=== PATIENT | male | born 1985 | race African-American/Black ===

== ENCOUNTER 2024-12-28 09:38 | Emergency (ER) | payer SELFPAY ==
[~2024-12-28] VITALS: Ht 175.3 cm; Wt 179.6 kg
[2024-12-28 10:11] LABS: SARS-CoV-2, RNA, NAAT NEGATIVE SARS CoV-2 (NEGATIVE)
[2024-12-28 10:39] LABS: INFLUENZA TYPE A Negative For Type A (NEGATIVE); INFLUENZA TYPE B Negative For Type B (NEGATIVE)
[2024-12-28] MEDS: Solu-medROL 40MG VIAL IM ONE (10:47)
[2024-12-28] MEDS: ketOROlac 15MG/ML VIAL (15MG/ML) IM ONE (10:47)
[2024-12-28 11:14] VITALS: PULSE 108; RESP 20
[2024-12-28] MEDS: ALBUTEROL 0.083% 2.5 MG/3 ML INH IH ONE (11:14)
--- NOTE | 2024-12-28 11:28 | HMCIMG ---
PORTABLE CHEST RADIOGRAPH INDICATION: COUGH COMPARISON: None FINDINGS: Image is somewhat underexposed, but the radiologic examination is still believed to be of reasonable diagnostic quality. Heart and pulmonary vascularity are enlarged. No abnormal pulmonary parenchymal opacity or consolidation identified. No significant pleural effusion noted. No pneumothorax detected. IMPRESSION: Cardiomegaly and pulmonary vascular congestion.
[2024-12-28] MEDS ORDERED: CODE473S6 PO (11:37)
[2024-12-28] MEDS ORDERED: AZIT250T9 PO (11:37)
[2024-12-28] MEDS ORDERED: ALBUHFA IH (11:37)
[2024-12-28] MEDS ORDERED: PRED20TA3 PO (11:37)
--- NOTE | 2024-12-28 11:40 | ERN ---
General Chief Complaint: Cough Stated Complaint: COUGH, RIB PAIN Time Seen by MD: 09:44 History of Present Illness Initial Comments 39-year-old male, history of CHF hypertension, presents for cough congestion over the last few days. He reports some subjective fevers, productive cough and tightness in his chest. He reports some left flank pain due to a significant coughing. He was tried [id number] cough and cold medications without relief. Of note, he does occasionally get fluid overloaded. He takes Lasix and spi ronolactone. He reports that he was not feel fluid overloaded at this time, he feels like he was viral URI type symptoms. Allergies: Coded Allergies: Penicillins (Unverified Allergy, Unknown, 12/28/24) Past Medical History Past Medical History: CHF, Hypertension Past Surgical History: None ROS Dictation CONSTITUTIONAL: No chills, no fever, no weakness, no diaphoresis, no malaise. HEAD/FACE: No signs of trauma. EENT: No eye pain, no blurred vision, no tearing, no double vision, no ear pain, no ear discharge, no nose pain, no nasal congestion, no throat pain, no throat swelling, no mouth pain. RESPIRATORY: Productive cough and body aches CARDIOVASCULAR: No chest pain, no edema, no palpitations, no syncope. GASTROINTESTINAL/ABDOMINAL: No abdominal pain, no constipation, no diarrhea, no nausea, no vomiting. GENITOURINARY: No abnormal discharge, no dysuria, no frequent urination, no hematuria. No complaints of pain in the genitals. MUSCULOSKELETAL: No back pain, no gout, no joint pain, no joint swelling, no muscle pain, no muscle stiffness, no neck pain. INTEGUMENTARY: No change in color, no change in hair/nails, no dryness, no lesion, no lumps, no rash. NEUROLOGICAL/PSYCH: No anxiety, not depressed, no emotional problem, no headache, no numbness, no pre-existing deficit, no history of seizures, no tremors, no weakness. HEMATOLOGIC/LYMPHATIC: Not anemic, no history of blood clots, no apparent bleeding, no bruising, glands not swollen. All Systems Negative, Except as Noted. Physical Exam Physical Exam Dictation VITAL SIGNS: Reviewed. GENERAL APPEARANCE: Alert, oriented x3, no acute distress, obese. HEAD AND FACE: Non-traumatic. EYES: PERRL, pink conjunctivas, eyelid no trauma, anterior chamber clear. EARS: Pinnas intact and no signs of trauma or erythema. Ear canals clear and no discharge. TMs no erythema. NOSE: No discharge, no bleeding. OROPHARYNX: Mouth normal, teeth no caries, tongue pink. Pharynx clear, no erythema. Tonsils no exudates, no abscesses noted. Mucous membrane moist. NECK: Supple, non-tender, no thyromegaly, no masses, no JVD, no bruits. BREAST: Deferred. CHEST: No tenderness, no crepitus, no paradoxical movement, no retractions. LUNGS: Coughing, minimal expiratory wheezing, no pulmonary edema noted on exam HEART: Regular rate, regular rhythm, no murmur, no gallops. VASCULAR: No peripheral edema. ABDOMEN: Soft, positive bowel sounds, nondistended, no guarding, nontender, no rebound, no masses no hepatomegaly, no splenomegaly, no Luis's sign, no h ernias. RECTAL: Deferred. GENITAL: Deferred. NEUROLOGICAL: Normal speech, gross motor function intact, gross sensory functi on intact. MUSCULOSKELETAL: Neck nontender, full range of motion, back nontender, full range of motion. EXTREMITIES: Nontender, full range of motion. SKIN: Color pink, dry, no turgor, no rash, no lacerations, no abrasions, no contusions. LYMPHATICS: Deferred. Results Laboratory and Microbiology Lab and Micro Result Laboratory Tests Test 12/28/24 09:46 Influenza Type A Antigen Negative For Type A Influenza Type B Antigen Negative For Type B SARS-CoV-2, RNA, NAAT NEGATIVE SARS CoV-2 MDM CC: Cough congestion Historian: Patient Comorbidities: Obesity, hypertension, CHF Limitations by social determinants of health: None Differential diagnosis: Viral URI, bronchitis, pneumonia, other. Vital signs are stable Clinical exam he does show some type breath sounds. Flu and SARS are negative CXR (independently ordered and interpreted by me): Cardiomegaly, congestion no focal infiltrates Patient was wheezing, did receive a DuoNeb in the ER. Treatment in ER: Inhaled DuoNeb, IM Toradol, IM steroids. I do not see any life threats at this time. He was no chest pain or cardiac type symptoms. He appears to have a URI. Based on the subjective fever and productive cough, we will treat with the antibiotics, steroids, cough medication. Plan: Prescription for azithromycin, prednisone, cough medication, albuterol. Recommend PCP follow up. ED Course Orders Procedure Category Date Status Time Covid Rna Naat LAB 12/28/24 Complete 09:43 Influenza Type A & B, LAB 12/28/24 Complete Rapid 09:43 Chest 1vw RAD 12/28/24 Taken 09:43 Ketorolac PHA 12/28/24 Complete Tromethamine 15mg/Ml 10:30 Methylprednisolone PHA 12/28/24 Complete Succ 40mg (Solu-Medro 10:30 Albuterol 0.083% PHA 12/28/24 Complete 2.5mg/3ml (Proventil 11:00 Chest 1vw RAD 12/28/24 Resulted 10:58 Current Medications Medications (Trade) Dose Ordered Sig/Afia Route PRN Reason Start Time Stop Time Status Last Admin Dose Admin Albuterol Sulfate (Proventil 0.083% 2.5mg/3ml) 2.5MG ONCE ONCE IH 12/28/24 11:00 12/28/24 11:01 DC 12/28/24 11:14 Ketorolac Tromethamine (toRADol) 15 mg ONCE ONCE IM 12/28/24 10:30 12/28/24 10:31 DC 12/28/24 10:47 Methylprednisolone Sodium Succinate (Solu-medROL 40MG) 40 mg ONCE ONCE IM 12/28/24 10:30 12/28/24 10:31 DC 12/28/24 10:47 Vital Signs Date Time Temp Pulse Resp B/P (MAP) Pulse Ox O2 Delivery O2 Flow Rate FiO2 12/28/24 11:14 108 20 12/28/24 09:39 99.0 102 20 169/115 96 Room Air 0 DX & DISP Disposition: Discharge Departure Impression: Primary Impression: Upper respiratory infection Condition: Stable Scripts Albuterol Sulfate (Ventolin Hfa/Proventil Hfa/Proair Hfa) 90 Mcg Puff 2 PUFF IH Q4HPRN PRN for wheezing for 30 Days, #18 GM 0 Refills Prov: RAJI MIRANDA DO 12/28/24 Prednisone (Prednisone) 20 Mg Tablet 1 TAB PO BID for 5 Days, #10 TAB 0 Refills Prov: RAJI MIRANDA DO 12/28/24 Promethazine HCl/Codeine (Promethazine-Codeine Syrup) 6.25 Mg-10 Mg/5 Ml Syrup 5 ML PO Q4HPRN PRN for cough, #120 ML 0 Refills Prov: RAJI MIRANDA DO 12/28/24 Azithromycin (Azithromycin) 250 Mg Tablet 1 TAB PO AD for 5 Days, #6 TAB 0 Refills 2 the first day followed by 1 for days 2-5 Prov: RAJI MIRANDA DO 12/28/24 Additional Instructions: Your symptoms are consistent with an upper respiratory infection. Your flu and COVID swabs were negative. Your chest x-ray shows signs of heart failure, but otherwise there were no major abnormalities. Your vital signs and oxygen level has been normal here in the ER. You did have minimal wheezing here in the ER. You received a DuoNeb inhaled treatment. You also received IV Toradol and Solu-Medrol. These are anti-inflammatory medications. I have prescribed azithromycin, which is an antibiotic. Please take as p rescribed. I have prescribed prednisone, which is an anti-inflammatory steroid. Please take as prescribed. I have prescribed an albuterol inhaler. You can use this every 4 hours as needed for cough or wheezing. I have prescribed promethazine/codeine cough medication. You can take 5 mL every 6 hours as needed for cough. Please note that this medication may make you drowsy. Please continue taking your diuretics as already prescribed. You can take Tylenol or ibuprofen as needed for fever or body aches. Please follow up with your primary doctor next week for re-evaluation. Return to the emergency department sooner if you have any concerns. Referrals: NONE (PCP) RAJI MIRANDA DO Dec 28, 2024 11:40
[2024-12-28 12:16] VITALS: BP 142/88; PULSE 92; RESP 18; TEMP 98.9; O2SAT 96
[2024-12-29] MEDS ORDERED: FURO40TA5 PO (03:29)
[2024-12-29] MEDS ORDERED: SPIR25TA6 PO (03:29)
[2024-12-29] MEDS ORDERED: AZIT250T PO (03:37)
[2024-12-29] MEDS ORDERED: CODE473S6 PO (03:37)
[2024-12-29] MEDS ORDERED: PRED20TA3 PO (03:37)
== END 2024-12-28 12:17 | disposition home or self-care (01) ==
LOC: EDH 09:38
DX: J06.9 Acute upper respiratory infection, unspecified (principal); E66.9 Obesity, unspecified; I11.0 Hypertensive heart disease with heart failure; I50.9 Heart failure, unspecified; Z20.822 Contact with and (suspected) exposure to COVID-19; Z88.0 Allergy status to penicillin
CPT/HCPCS: 99284; 71045 ×2; 87635; 87804 ×2; 96372 ×2; 94640; J1885; J2919

== ENCOUNTER 2024-12-29 | Inpatient (IN) | payer SELFPAY ==
[2024-12-29] VITALS (31 sets, daily range): BP systolic 124–163; BP diastolic 64–102; PULSE 79–95; RESP 18–39; TEMP 98–98.6; O2SAT 94–99
[~2024-12-29] VITALS: Ht 175.3 cm; Wt 173.4 kg
[~2024-12-29] MED LIST: ALBUHFA IH; AZIT250T9 PO; CODE473S6 PO; PRED20TA3 PO
[2024-12-29] MEDS: acetaMINOPHEN WITH coDEINE 1 TAB TAB PO ONE (00:49)
[2024-12-29] MEDS: BENZONATATE 100 MG CAPSULE PO ONE (00:50)
[2024-12-29 02:04] LABS: BASOPHILS # (AUTO) 0.01 K/uL (0.00-0.20); BASOPHILS % (AUTO) 0.2 % (0.0-5.0); HEMATOCRIT 38.3 % (42-54); IMMATURE GRANULOCYTE ABSOLUTE 0.02 K/uL (0-1); LYMPHOCYTES # (AUTO) 0.7 K/uL (1.0-4.8); LYMPHOCYTES % (AUTO) 12.7 % (21.0-51.0); MEAN CORPUSCULAR HEMOGLOBIN 25.9 pg (27.0-33.0); MEAN CORPUSCULAR HGB CONC 32.1 g/dL (32.0-36.0); MEAN CORPUSCULAR VOLUME 80.6 fL (79-99); MONOCYTES # (AUTO) 0.8 K/uL (0.1-1.0); NEUTROPHILS # (AUTO) 4.3 K/uL (1.8-7.7); NEUTROPHILS % (AUTO) 73.8 % (40.0-77.0); PLATELET COUNT (AUTO) 239 K/uL (130-400); RED BLOOD CELL COUNT(AUTO) 4.75 MIL/uL (4.50-6.20); WHITE BLOOD COUNT (AUTO) 5.8 K/uL (4.8-10.8)
[2024-12-29 02:12] LABS: CREATININE 1.6 mg/dL (0.5-1.3); MAGNESIUM 2.4 mg/dL (1.80-2.40); POTASSIUM 3.8 mmol/L (3.5-5.1)
[2024-12-29] MEDS: morPHINE 2 MG SYG IVP ONE (02:12)
--- NOTE | 2024-12-29 02:15 | ERN ---
General Chief Complaint: Rib Pain Stated Complaint: LEFT RIB PAIN Time Seen by MD: 00:29 Time Seen by Midlevel: 00:29 Source: patient History of Present Illness Initial Comments Patient is a morbidly obese 39-year-old male with a past medical history of congestive heart failure and hypertension presenting to the emergency department with left-sided chest pain. He was seen in our emergency department on December 28, 2024 for a cough. He was diagnosed with a you upper respiratory infection. The patient was sent home with multiple prescriptions. He said he was able to feel all his prescriptions accept for promethazine. He states a few hours prior to arrival he had an episode of coughing that felt like an explosion to his left rib area patient is now unable to cough due to pain. He does report shortness of breath Allergies: Coded Allergies: Penicillins (Unverified Allergy, Unknown, 12/28/24) Home Meds Active Scripts Promethazine HCl/Codeine (Promethazine-Codeine Syrup) 6.25 Mg-10 Mg/5 Ml Syrup, 5 ML PO Q4HPRN PRN for cough, #120 ML 0 Refills Prov:RAJI MIRANDA DO 12/28/24 Albuterol Sulfate (Ventolin Hfa/Proventil Hfa/Proair Hfa) 90 Mcg Puff, 2 PUFF IH Q4HPRN PRN for wheezing for 30 Days, #18 GM 0 Refills Prov:RAJI MIRANDA DO 12/28/24 Prednisone (Prednisone) 20 Mg Tablet, 1 TAB PO BID for 5 Days, #10 TAB 0 Refills Prov:RAJI MIRANDA DO 12/28/24 Promethazine HCl/Codeine (Promethazine-Codeine Syrup) 6.25 Mg-10 Mg/5 Ml Syrup, 5 ML PO Q4HPRN PRN for cough, #120 ML 0 Refills Prov:RAJI MIRANDA DO 12/28/24 Azithromycin (Azithromycin) 250 Mg Tablet, 1 TAB PO AD for 5 Days, #6 TAB 0 Refills 2 the first day followed by 1 for days 2-5 Prov:RAJI MIRANDA DO 12/28/24 Past Medical History Past Medical History: CHF, Hypertension Past Surgical History: None ROS Dictation CONSTITUTIONAL: Negative except for HPI HEAD/FACE: Negative except for HPI EENT: Negative except for HPI RESPIRATORY: Negative except for HPI GASTROINTESTINAL/ABDOMINAL: Negative except for HPI GENITOURINARY: Negative except for HPI MUSCULOSKELETAL: Negative except for HPI INTEGUMENTARY: Negative except for HPI NEUROLOGICAL/PSYCH: Negative except for HPI HEMATOLOGIC/LYMPHATIC: Negative except for HPI All Systems Negative, Except as noted above. 13 point review of systems assessed and all negative except for above. Physical Exam Physical Exam Dictation Vital Signs reviewed General Appearance: Alert, oriented x 3, no acute distress, well developed, nourished. Head and Face: non-traumatic. Eyes: PERRL, pink conjunctivas, eyelid no trauma, anterior chamber with arcus senilis. Ears: Pinnas intact and no signs of trauma or erythema ear canals clear and no discharge TM no erythema Nose: No discharge, no bleeding. Oropharynx: Mouth normal, tongue pink, pharynx clear,no erythema, tonsils no exudates, no abscesses noted, mucous membrane moist Neck: Supple, non-tender, no thyromegaly, no masses, no JVD, no bruits Breast:Deferred Chest:No tenderness, no crepitus, no paradoxical movement, no retractions Lungs:Clear, well-ventilated, symmetric, no rales, no wheezing, no rhonchi, no stridor, good breath sounds bilaterally Heart: Regular rate, regular rhythm, no murmur, no gallops Vascular: no peripheral edema, Abdomen: Soft, positive bowel sounds, nondistended, no guarding, nontender, no rebound, no masses no hepatomegaly, no splenomegaly, no Luis's sign, no hernias. Rectal: Deferred Genital: Deferred Neurological: Normal speech, motor function intact, sensory function intact Musculoskeletal: Neck nontender, full range of motion, back nontender, full range of motion, Extremities: nontender, full range of motion Skin: Color pink, dry, no turgor, no rash, no lacerations, no abrasions, no contusions. Lymphatic: Deferred Results Laboratory and Microbiology Lab and Micro Result Laboratory Tests Test 12/29/24 01:45 White Blood Count 5.8 K/uL (4.8-10.8) Red Blood Count 4.75 MIL/uL (4.50-6.20) Hemoglobin 12.3 g/dL (14.0-18.0) L Hematocrit 38.3 % (42-54) L Mean Corpuscular Volume 80.6 fL (79-99) Mean Corpuscular Hemoglobin 25.9 pg (27.0-33.0) L Mean Corpuscular Hemoglobin Concent 32.1 g/dL (32.0-36.0) Red Cell Distribution Width 15.0 % (11.0-15.5) Platelet Count 239 K/uL (130-400) Mean Platelet Volume 12.4 fL (7.5-10.5) H Immature Granulocyte % (Auto) 0.3 % (0-1) Neutrophils (%) (Auto) 73.8 % (40.0-77.0) Lymphocytes (%) (Auto) 12.7 % (21.0-51.0) L Monocytes (%) (Auto) 13.0 % (3.0-13.0) Eosinophils (%) (Auto) 0.0 % (0.0-8.0) Basophils (%) (Auto) 0.2 % (0.0-5.0) Neutrophils # (Auto) 4.3 K/uL (1.8-7.7) Lymphocytes # (Auto) 0.7 K/uL (1.0-4.8) L Monocytes # (Auto) 0.8 K/uL (0.1-1.0) Eosinophils # (Auto) 0.00 K/uL (0.00-0.70) Basophils # (Auto) 0.01 K/uL (0.00-0.20) Absolute Immature Granulocyte (auto 0.02 K/uL (0-1) Nucleated Red Blood Cells 0.0 % (0.0-0.19) Prothrombin Time 10.8 SEC (9.6-11.6) Prothromb Time International Ratio 1.02 (0.85-1.15) Activated Partial Thromboplast Time 25.3 SEC (26.3-35.5) L Sodium Level 139 mmol/L (136-145) Potassium Level 3.8 mmol/L (3.5-5.1) Chloride Level 101 mmol/L (101-111) Carbon Dioxide Level 28 mmol/L (21-32) Blood Urea Nitrogen 22 mg/dL (7-18) H Creatinine 1.6 mg/dL (0.5-1.3) H Glomerular Filtration Rate Calc 55 mL/min (>90) Random Glucose 124 mg/dL (70-105) H Total Calcium 8.7 mg/dL (8.5-10.1) Magnesium Level 2.40 mg/dL (1.80-2.40) Troponin I High Sensitivity 108 ng/L (4-75) *H B-Type Natriuretic Peptide 807 pg/mL (0-100) H Labs Reviewed?: Yes MDM MDM: Differential diagnosis: Pneumothorax, CHF exacerbation, pneumonia Rationale: Tests considered and ordered secondary to shared decision making include: Previous outside records reviewed: Old ER visits. Risk of complication and/or morbidity or mortality of patient management: None Medications-Per medication reconciliation Need for hospitalization: Patient does meet criteria for hospitalization. Need for emergency major/minor surgery: No There are no social concerns with this patient. Prescription drug management Prescriptions will include symptomatic care Patient's prior external medical records from other ER visits were reviewed by me as indicated. Prior testing and results from previous visits were reviewed. Prior tests were taken into account with medical decision making and resource utilization, independent historian/historians were used to obtain complete medical history. I independently interpreted the test that were performed, results were reviewed by me and considered findings on radiology if ordered. Medical management and examination interpretation discussions were had by me with other qualified healthcare professionals as indicated for the patient's care. Lab results showed that the patient's BNP was 800 and his troponin is 100. Chest x-ray shows bilateral pleural effusions. The patient does not need to be intubated he was oxygenating well with a minimal amounts of supplemental oxygen. I discussed the patient with the hospitalist and they have admitted him to their service. ED Course Orders Procedure Category Date Status Time Chest 1vw RAD 12/29/24 Taken 00:32 Acetaminophen With PHA 12/29/24 Complete Codeine (Tylenol-Code 01:00 Benzonatate 100 Mg PHA 12/29/24 Complete Capsule (Tessalon 100 01:00 Cbc With Differential LAB 12/29/24 Complete 01:34 Basic Metabolic Panel LAB 12/29/24 Complete 01:34 B-Type Natriuretic LAB 12/29/24 Complete Peptide 01:34 Troponin I High LAB 12/29/24 Complete Sensitivity 01:34 Magnesium LAB 12/29/24 Complete 01:34 Ct Chest W/O Contrast CT 12/29/24 Taken 01:34 12 Lead Ekg Tracing- EKG 12/29/24 Logged Technical 01:52 Morphine 2mg Syg PHA 12/29/24 Complete (Morphine 2mg Syg) 02:30 Pt And Ptt LAB 12/29/24 Complete 02:49 Furosemide 40mg Vial PHA 12/29/24 Complete (Lasix 40mg Vial) 03:00 Aspirin 325mg Tab PHA 12/29/24 Complete (Aspirin 325mg Tab) 03:00 Nitroglycerin 1gm PHA 12/29/24 Complete Oint (Nitroglycerin 1g 03:00 Current Medications Medications (Trade) Dose Ordered Sig/Afia Route PRN Reason Start Time Stop Time Status Last Admin Dose Admin Acetaminophen/ Codeine Phosphate (TYLenol-coDEINE TAB) 1 tab ONCE ONCE PO 12/29/24 01:00 12/29/24 01:01 DC 12/29/24 00:49 Aspirin (Aspirin 325mg Tab) 325 mg ONCE ONCE PO 12/29/24 03:00 12/29/24 03:01 DC 12/29/24 02:57 Benzonatate (Tessalon 100mg Caps) 200 mg ONCE ONCE PO 12/29/24 01:00 12/29/24 01:01 DC 12/29/24 00:50 Furosemide (LASix 40MG VIAL) 40 mg ONCE ONCE IV 12/29/24 03:00 12/29/24 03:01 DC 12/29/24 02:57 Morphine Sulfate (morPHINE 2MG SYG) 2 mg ONCE ONCE IVP 12/29/24 02:30 12/29/24 02:31 DC 12/29/24 02:12 Nitroglycerin (Nitroglycerin 1gm Oint) 1 inch ONCE ONCE TD 12/29/24 03:00 12/29/24 03:01 DC 12/29/24 02:57 Vital Signs Date Time Temp Pulse Resp B/P (MAP) Pulse Ox O2 Delivery O2 Flow Rate FiO2 12/29/24 01:51 97 22 172/111 97 Room Air* 0 21 12/29/24 00:01 97.9 99 26 149/103 95 Room Air DX & DISP Disposition: Inpatient Departure Impression: Primary Impression: Congestive heart failure Condition: Stable Referrals: NONE (PCP) I have reviewed the case, and I agree with, Diagnosis and Plan I performed the substantive portion of the visit. I have reviewed and pe rsonally made and approve the management plan that is documented in the note by myself or the DEEDEE. I acknowledge for responsibility for the patient's management plan. MALU HERNANDEZ Dec 29, 2024 02:15 ART PEREZ MD Dec 29, 2024 03:08
[2024-12-29 02:38] LABS: B-TYPE NATRIURETIC PEPTIDE 807 pg/mL (0-100)
[2024-12-29] MEDS: NITROGLYCERIN 1GM OINT 1 INCH/1GM TD ONE (02:57)
[2024-12-29] MEDS: furoSEMIDE 40MG VIAL IV ONE (02:57)
[2024-12-29] MEDS: ASPIRIN 325MG TAB PO ONE (02:57)
[2024-12-29 03:01] LABS: INR 1.02 (0.85-1.15); PROTHROMBIN TIME 10.8 SEC (9.6-11.6)
[2024-12-29 03:03] LABS: PARTIAL THROMBOPLASTIN TIME 25.3 SEC (26.3-35.5)
--- NOTE | 2024-12-29 03:23 | NUR ---
Vanessa dubois in [facility] - 12/29/24 at 0328 by ALLY PATIENT DID NOT BRING HOME MEDICATIONS
[2024-12-29] MEDS ORDERED: SPIR25TA6 PO (03:29)
[2024-12-29] MEDS ORDERED: FURO40TA5 PO (03:29)
[2024-12-29] MEDS ORDERED: hydrALAZine 20MG/ML VIAL IV PRN (03:30)
[2024-12-29] MEDS ORDERED: LACTULOSE 20 GM/30 ML UDCUP PO PRN (03:30)
[2024-12-29] MEDS ORDERED: acetaMINOPHEN 650 MG SUPPOSITORY RC PRN (03:30)
[2024-12-29] MEDS ORDERED: ALBUTEROL 0.083% 2.5 MG/3 ML INH IH PRN (03:30)
[2024-12-29] MEDS ORDERED: IpraTROPium 0.5 MG/2.5 ML INH IH PRN (03:30)
[2024-12-29] MEDS ORDERED: ondanSETRON 4MG INJ IVP PRN (03:30)
[2024-12-29] MEDS ORDERED: TEMAZepam 15 MG CAPSULE PO PRN (03:30)
[2024-12-29] MEDS ORDERED: CODE473S6 PO (03:37)
[2024-12-29] MEDS ORDERED: AZIT250T PO (03:37)
[2024-12-29] MEDS ORDERED: PRED20TA3 PO (03:37)
--- NOTE | 2024-12-29 03:51 | HP ---
[facility] HISTORY AND PHYSICAL Date of Service: Dec 29, 2024 Time of Service: 03:50 Attending/admitting physicians: Dr. Salinas and Dr. Fowler HISTORY OF PRESENT ILLNESS: Mr. Escobar is a morbidly obese 39-year-old male with a past medical history of congestive heart failure and hypertension who presented to [facility] for evaluation of left-sided chest pain. He was seen in our emergency department on December 28, 2024 for a cough and was discharged home with the diagnosis of upper respiratory infection. The patient was sent home with multiple prescriptions. He said he was able to get all his prescriptions accept for promethazine. He stated a few hours prior to arrival he had an episode of coughing that felt like an explosion to his left rib area patient is now unable to cough due to pain which prompted the ED visit. He also reported shortness of breath on exertion and today even at rest. The patient was negative for influenza and COVID on 12/28/2024. Today's patient presented with a blood pressure of 149/103 repeat blood pressure was 172/111 systolic blood pressure. Today's Remarkable lab results: Troponin 108, BNP 807, Hemoglobin 12.3, hematocrit 30.3, BUN 22, creatinine 1.6, GFR 55, glucose 124. CT Chest without contrast: Bilateral lung pneumonia. In ED the patient received Lasix 40 mg IV, Tylenol codeine, Tessalon Perles, morphine2 mg IV, [id number] mg, nitroglycerin1 in. ED provider requested patient be admitted with the diagnosis of congestive heart failure. Patient was admitted under the [facility] hospitalist team. I assessed the patient at bedside in ED 5. The patient was standing by his stretcher, was tachypneic, but able to speak in full sentences. The patient reported he has voided about 1 L after Lasix 40 mg IV was given. The patient states that he does drink a lot of water at home. He states that he is not on a fluid restriction. He reports that his doctor increase Lasix 40 mg PO b.i.d. to Lasix 80 mg p.o. b.i.d. Education done on fluid restrictions. I answered his and significant other at bedside questions. They verbalized understanding and are in agreement with the plan. Plan and assessment are listed below. REVIEW OF SYSTEMS ROS reviewed with patient. All pertinent positives mentioned above. Otherwise negative, noncontributory, non-pertinent. PAST MEDICAL HISTORY: As mentioned above PAST SURGICAL HISTORY: None PAST SOCIAL HISTORY: Noncontributory FAMILY HISTORY: Noncontributory Coded Allergies: Penicillins (Unverified Allergy, Unknown, 12/28/24) PHYSICAL EXAM GENERAL APPEARANCE: The patient is awake, alert, and oriented, in no acute cardiopulmonary distress. NEUROLOGICAL: Cranial nerves II-XII grossly intact. Motor is 5/5 in bilateral upper and lower extremities proximal to distal. No sensory deficits. HEENT: Face is symmetric. Pupils are equal and reactive. Extraocular movements are intact. NECK: Supple. No JVD. No thyromegaly. No submental, submandibular, pre- /postauricular, occipital or supraclavicular lymphadenopathy. CHEST: Normal chest expansion. No Telemetry. LUNGS: Crackles. Absence of any rales, rhonchi or any wheezing. CARDIOVASCULAR: Regular. S1 and S2 normal. No appreciable rubs, murmurs or gallops. ABDOMEN: Obese. Soft, nontender, and nondistended. There is no rebound, voluntary guarding, or rigidity. : Deferred. No Duarte. EXTREMITIES: Not cyanotic. No clubbing. Good capillary refill. Bilateral lower extremity edema. SKIN: No skin breakdown. Vital Sign (Last 24 Hours) 12/29/24 12/29/24 00:01 01:51 Temp 97.9 Pulse 97 Resp 22 B/P (MAP) 172/111 Pulse Ox 97 O2 Delivery Room Air* O2 Flow Rate 0 FiO2 21 LABS: Laboratory: Test 12/29/24 01:45 Range/Units White Blood Count 5.8 4.8-10.8 K/uL Red Blood Count 4.75 4.50-6.20 MIL/uL Hemoglobin 12.3 L 14.0-18.0 g/dL Hematocrit 38.3 L 42-54 % Mean Corpuscular Volume 80.6 79-99 fL Mean Corpuscular Hemoglobin 25.9 L 27.0-33.0 pg Mean Corpuscular Hemoglobin Concent 32.1 32.0-36.0 g/dL Red Cell Distribution Width 15.0 11.0-15.5 % Platelet Count 239 130-400 K/uL Mean Platelet Volume 12.4 H 7.5-10.5 fL Immature Granulocyte % (Auto) 0.3 0-1 % Neutrophils (%) (Auto) 73.8 40.0-77.0 % Lymphocytes (%) (Auto) 12.7 L 21.0-51.0 % Monocytes (%) (Auto) 13.0 3.0-13.0 % Eosinophils (%) (Auto) 0.0 0.0-8.0 % Basophils (%) (Auto) 0.2 0.0-5.0 % Neutrophils # (Auto) 4.3 1.8-7.7 K/uL Lymphocytes # (Auto) 0.7 L 1.0-4.8 K/uL Monocytes # (Auto) 0.8 0.1-1.0 K/uL Eosinophils # (Auto) 0.00 0.00-0.70 K/uL Basophils # (Auto) 0.01 0.00-0.20 K/uL Absolute Immature Granulocyte (auto 0.02 0-1 K/uL Nucleated Red Blood Cells 0.0 0.0-0.19 % Prothrombin Time 10.8 9.6-11.6 SEC Prothromb Time International Ratio 1.02 0.85-1.15 Activated Partial Thromboplast Time 25.3 L 26.3-35.5 SEC Sodium Level 139 136-145 mmol/L Potassium Level 3.8 3.5-5.1 mmol/L Chloride Level 101 101-111 mmol/L Carbon Dioxide Level 28 21-32 mmol/L Blood Urea Nitrogen 22 H 7-18 mg/dL Creatinine 1.6 H 0.5-1.3 mg/dL Glomerular Filtration Rate Calc 55 >90 mL/min Random Glucose 124 H 70-105 mg/dL Total Calcium 8.7 8.5-10.1 mg/dL Magnesium Level 2.40 1.80-2.40 mg/dL Troponin I High Sensitivity 108 *H 4-75 ng/L B-Type Natriuretic Peptide 807 H 0-100 pg/mL Current Medications Medications (Trade) Dose Ordered Sig/[place] Route PRN Reason Start Time Stop Time Status Last Admin Dose Admin Acetaminophen (TYLenol 325MG TAB) 650 mg Q6H PRN PO FEVER/MILD PAIN LEVEL 1-3 12/29/24 03:30 01/28/25 03:29 Acetaminophen (TYLenol 650MG SUPPOSITORY) 650 mg Q6H PRN RC FEVER / MILD PAIN 1-3 IF NPO 12/29/24 03:30 01/28/25 03:29 Albuterol Sulfate (Proventil 0.083% 2.5mg/3ml) 2.5 mg [id number] PRN IH SHORTNESS OF BREATH 12/29/24 03:30 01/28/25 03:29 Aspirin (Aspirin 81mg Chew Tab) 81 mg DAILY PO 12/29/24 09:00 01/28/25 08:59 Docusate Sodium (COLace 100MG CAP) 100 mg BID PRN PO c 12/29/24 03:30 01/28/25 03:29 Hydralazine HCl (APRESOLine 20MG INJ) 10 mg Q2H PRN IV SBP GREATER THAN 160 12/29/24 03:30 01/28/25 03:29 Insulin Human Regular (humuLIN R 100 UNIT/ML 3ML) INSULIN SLIDING SCAL... ACHS SQ 12/29/24 07:30 01/28/25 07:29 Ipratropium [place] (AtrovENT UD) 0.5 mg [id number] PRN IH SHORTNESS OF BREATH/WHEEZING 12/29/24 03:30 01/28/25 03:29 Lactulose (Constulose 20gm/ 30ml Udcup) 20 gm Q6H PRN PO CONSTIPATION 12/29/24 03:30 01/28/25 03:29 Ondansetron HCl (zoFRAN 4MG INJ) 4 mg Q6H PRN IVP NAUSEA/VOMITING 12/29/24 03:30 01/28/25 03:29 Temazepam (restORIL 15 MG CAP) 15 mg HS PRN PO INSOMNIA/SLEEP 12/29/24 03:30 01/28/25 03:29 DIAGNOSTICS / RADIOLOGY: [ ] ASSESSMENT: Acute CHF with exacerbation, POA NSTEMI, elevated troponins, POA Volume overload, POA, noncompliant with fluid restriction Community-acquired pneumonia, POA Pulmonary vascular congestion, POA Cardiomegaly, POA Anemia chronic disease kidney disease, POA Uncontrolled hypertension Morbidly obese, BMI 58.3 PLAN: -Admit to PCCU with continuous telemetry monitoring. -Monitor respiratory status closely. -Continue oxygen therapy as needed. Titrate oxygen prn to keep Spo2>/+=92%. -BiPAP as needed for shortness of breath. -Atrovent q.4 hours scheduled. -Aspirin 81 mg p.o. daily. -Atorvastatin 40 mg PO daily. -Lasix 40 mg IV BID. -Nitroglycerin paste t.i.d.. -Consult glass bender for elevated troponin, chest pain, CHF exacerbation. -lidocaine patch as needed for to rib pain. -Strict I&O. -Fluid restriction 1,200 mls in 24 hours. -Daily weight. -RT to provide IS and education on use. -Robitussin DM as needed cough. -Solu-Medrol 25 mg IV x1 dose then Solu-Medrol 60 mg IV q.6 hours. -Antibiotic therapy: Levaquin 750 mg IV daily. -PRN medications for: Pain management, fever, hypertension, N/V, constipation. -Glucometer checks AC & HS needed with insulin regular sliding scale coverage as needed. -Blood pressure checks every 4 hours and as needed. -Reconcile home medications once available. - Monitor renal and liver function. -Monitor electrolytes and replace PRN -AM labs: CBC, BMP, mag, phos, TSH, A1C, D-dimer, troponin. -GI and DVT prophylaxis ADVANCED CARE PLANNING 1. Which of the following were discussed? Hospice Care - No Therapeutic options - Yes Advance Directives - Yes Other discussions - 2. Discussed with who? Patient 3. Voluntary nature of this service was explained to the patient? Yes 4. Amount of time spent - __ over 40 minute 5. Reviewed by Physician? (if this service was performed by DEEDEE) Yes ADDENDUM: ATTENDING PHYSICIAN ATTESTATION: I have seen and discussed this patient with the midlevel and I agree with their plan. See my addendum for updates to the medical plan MD TRUDY Moon LUCIA M CAMP ATTENDANT Dec 29, 2024 03:51 CATHY CHRISTENSEN MD Dec 30, 2024 15:18
--- NOTE | 2024-12-29 04:14 | EKG ---
[facility] Test Date: 2024-12-29 Test Time: 02:14:04 Pat Name: SURENDRA BURGOS Department: EDH Room: ED Gender: M Tonger: [id number] : 1985 Requested By: MALU HERNANDEZ Order Number: [id number] Reading MD: Maryanne Asher Measurements Intervals [place] Rate: 87 P: 54 NE: 165 QRS: 17 QRSD: 107 T: 80 QT: 368 QTc: 444 Interpretive Statements Sinus rhythm Ventricular premature complex LAE, consider biatrial enlargement ST elev, probable normal early repol pattern No previous ECG available for comparison Electronically Signed On 12-29-2024 15:37:52 BIAS MACHINE OPERATOR by Maryanne Asher Please click the below link to view image of tracing.
[2024-12-29] MEDS: INSULIN humuLIN R 100 UNIT/ML 3ML SQ SCH (07:30)
--- NOTE | 2024-12-29 08:10 | HMCIMG ---
CT CHEST WITHOUT CONTRAST INDICATION: Left-sided chest pain TECHNIQUE: Routine axial images using 5 mm slice thickness were acquired from the lung apices to the bases without the administration of IV contrast.Coronal and sagittal reformatted images acquired for interpretation. CT was performed with one or more of the following dose reduction techniques: Automated exposure control, adjustment of the mA and/or kV according to patient size, or use of iterative reconstruction technique. COMPARISON: None FINDINGS: Extensive gantry artifact due to large patient body habitus. The heart size is normal. No pericardial effusion noted. The visualized great vessels and thoracic aorta are within normal limits. The trachea and airways are patent. Inferior right upper lobe, right lower lobe, and left lower lobe "ground-glass"/nodular opacities. No axillary, hilar, or mediastinal lymphadenopathy. No pleural effusion or pneumothorax identified. Limited views of the upper abdomen appear normal. Visible osseous structures are intact. IMPRESSION: Limitations as reported. Bilateral lung pneumonia, without pneumothorax.
--- NOTE | 2024-12-29 08:14 | HMCIMG ---
PORTABLE CHEST RADIOGRAPH INDICATION: COUGH/ RIB PAIN COMPARISON: 12/28/2024 at 11:08 AM FINDINGS: Heart and pulmonary vascularity are enlarged. No abnormal pulmonary parenchymal opacity or consolidation identified. No significant pleural effusion noted. No pneumothorax detected. IMPRESSION: Cardiomegaly and pulmonary vascular congestion.
[2024-12-29] MEDS: furoSEMIDE 40MG VIAL IV SCH (08:55)
[2024-12-29] MEDS: HEParin 5,000 UNIT VIAL SQ SCH (08:56)
[2024-12-29] MEDS: ASPIRIN 81MG CHEW TAB PO SCH (08:56)
[2024-12-29] MEDS ORDERED: levoFLOXacin 750 MG/D5W 150ML BAG IV SCH (09:30)
[2024-12-29] MEDS ORDERED: GLUCAGON 1MG KIT 1 MG ML IM PRN (09:30)
[2024-12-29] MEDS ORDERED: DEXTROSE 50%-WATER 50 ML DISP.SYRIN IV PRN (09:30)
[2024-12-29] MEDS ORDERED: PoTASSium chloRIDE 20MEQ/100ML 100 ML IV PRN (09:30)
[2024-12-29] MEDS ORDERED: guaiFENesin SUGAR-FREE 100 MG/5 ML UDCUP PO PRN (09:30)
[2024-12-29] MEDS ORDERED: MAGNESIUM 2GM PREMIX 50ML 50 ML IV PRN (09:30)
[2024-12-29] MEDS: IpraTROPium 0.5 MG/2.5 ML INH IH SCH (10:12)
[2024-12-29] MEDS ORDERED: Solu-medROL 125MG VIAL IVP ONE (10:30)
[2024-12-29] MEDS ORDERED: PoTASSium chl 10% ELIXIR 20MEQ 20 MEQ/15 ML UDCUP PO PRN (10:30)
[2024-12-29] MEDS: levoFLOXacin 750 MG/D5W 150 ML 150 ML IV SCH (10:31)
[2024-12-29] MEDS: guaiFENesin SUGAR-FREE 100 MG/5 ML UDCUP PO PRN (10:32)
[2024-12-29] MEDS: Solu-medROL 125MG VIAL IM ONE (10:32)
[2024-12-29] MEDS: acetaMINOPHEN 325 MG TAB PO PRN (10:33)
[2024-12-29] MEDS: SPIRONOLACTONE 25 MG TAB PO SCH (10:34)
[2024-12-29] MEDS: PoTASSium chloRIDE 20MEQ ER 20 MEQ ERTAB PO PRN (10:34)
[2024-12-29] MEDS: doCUSate SODIUM 100 MG CAP PO PRN (10:34)
[2024-12-29] MEDS: LIDOCAINE 4% ADH..PATCH TP SCH (10:34)
[2024-12-29] MEDS: NITROGLYCERIN 1GM OINT 1 INCH/1GM TD SCH (10:41)
[2024-12-29] MEDS: Solu-medROL 125MG VIAL IVP ONE (11:08)
[2024-12-29] MEDS: PANTOPrazole 40 MG/VIAL IVP ONE (11:08)
--- NOTE | 2024-12-29 11:33 | NUR ---
LANCE SPOKE WITH NURSE AT 10:58, PATIENT IS UNABLE TO LAY FLAT, EXAM WILL BE DONE TOMORROW
--- NOTE | 2024-12-29 12:57 | EKG ---
[facility] Test Date: 2024-12-29 Test Time: 08:31:52 Pat Name: SURENDRA BURGOS Department: EDHIP Room: ED [facility] Gender: M Welder Fitter Gas: [id number] : 1985 Requested By: TRIPP YATES Order Number: [id number] Reading MD: Maryanne Asher Measurements Intervals [place] Rate: 79 P: 60 IA: 164 QRS: 42 QRSD: 112 T: 82 QT: 389 QTc: 453 Interpretive Statements Sinus rhythm Multiform ventricular premature complexes Biatrial enlargement Compared to ECG 12/29/2024 02:14:04 ST (T wave) deviation no longer present Electronically Signed On 12-29-2024 15:38:00 SENIOR PIPING DESIGNER by Maryanne Asher Please click the below link to view image of tracing.
--- NOTE | 2024-12-29 15:29 | HMCSR ---
APPROVED REPORT EXAM: Two-dimensional and M-mode echocardiogram with Doppler and color Doppler. Study Details: Obesity INDICATION ICD: chf , exacerbation Heart Failure 2D Dimensions RVDd4.7 cmLVEF(%)33.1 (>50%)LVED Vol(simp.)302.0 mL IVSd1.1 (0.7-1.1cm)FS(%)16 %LVES Vol(simp.)190.0 mL LVDd6.8 (3.8-5.6cm)LA (2D)5.7 (1.6-4.0cm)LVEF(%, simp.)37 % PWd1.1 (0.7-1.1cm)Ao Root(2D)3.7 (2.0-3.7cm)LA ESV INDEX (4CH)28.30 mL/m2 IVSs1.8 cmLVOT diam2.5 (1.8-2.4cm)LA ESV INDEX (2CH)51.10 mL/m2 LVDs5.7 (2.5-4.0cm)LA ESV INDEX (BP)36.60 mL/m2 PWs1.7 cm Deformation Strain Apical 49.0 % Apical 211.0 % Apical 34.0 % Global Strain8.0 % M-Mode Dimensions EPSS2.5 cm LA (MM)6.1 (1.6-4.0cm) Ao Root(MM)3.6 (2.0-3.7cm) Aortic Valve AoV VTI0.2 mAo Mean GR2.0 mmHgLVOT VTI0.22 m PRIETO (VMAX)6.5 cm2AVA (VTI) 6.5 cm2 Mitral Valve MV E Vmax91.7 cm/sP 1/2 T43 ms MV A Vmax36.4 cm/sMVA (PHT)5.1 cm2 E/A ratio2.5 MR Max PG98 mmHg TDI E/E' Qqfptb66.1E/E' Lateral9.8 Medial E' Peak V7.00 cm/sLateral E' Peak V9.40 cm/s Pulmonary Valve PV VTI0.18 mPV Mean GR3 mmHg Left Ventricle Left ventricular cavity size is normal for BSA 2.4 cm/m2. Moderate to severe eccentric left ventricul ar hypertrophy. LVEF is 25-30%. Stage III diastolic dysfunction. Right Ventricle The right ventricle is borderline to mildly dilated. The right ventricular systolic function is elisabeth l. Atria The left atrium is moderately to severely dilated. The right atrium is moderately dilated. Aortic Valve The aortic valve is not well visualized. No aortic regurgitation is present. There is no aortic valvu lar stenosis. Mitral Valve The mitral valve is normal in structure and function. Mitral regurgitation is mild to moderate. There is no mitral valve stenosis. Tricuspid Valve Tricuspid valve is not well visualized. There is no tricuspid valve regurgitation noted. Pulmonic Valve Pulmonic valve is not well visualized. There is no pulmonic valvular regurgitation. Great Vessels The aortic root is normal in size. The ascending aorta is normal in size. The IVC is normal in size a nd collapses >50% with inspiration. Pericardium Trace pericardial effusion. Other Information Technically limited study due to Patient could not be placed onto left side. Conclusion Left ventricular cavity size is normal for BSA 2.4 cm/m2. Moderate to severe eccentric left ventricular hypertrophy. LVEF is 25-30%. Stage III diastolic dysfunction. The right ventricle is borderline to mildly dilated. The right ventricular systolic function is normal. The left atrium is moderately to severely dilated. The right atrium is moderately dilated. Mitral regurgitation is mild to moderate. Trace pericardial effusion.
--- NOTE | 2024-12-29 15:54 | NUR ---
CONTACTED DR. OTTO,, AWAITING CALL BACK
[2024-12-29 16:27] LABS: ABG BASE EXCESS -0.1 mmol/L (-2.0-3.0); ABG HCO3 24.1 mmol/L (21.0-28.0); ABG OXYGEN SATURATION 94.6 % (94.0-98.0); ABG PCO2 38 mmHg (35-48); ABG PH 7.422 (7.350-7.450); CARBON MONOXIDE 0.8 % (0.5-1.5); HHb 5.3; PO2, ARTERIAL BG 77.5 mmHg (83.0-108.0); VENT MODE, BG NC (ROOM AIR)
[2024-12-29] MEDS ORDERED: dexmedeTOMIDine 400MCG/NS100ML IV SCH (16:30)
[2024-12-29] MEDS: Solu-medROL 125MG VIAL IVP SCH (16:40)
[2024-12-29 18:26] LABS: CREATININE 1.6 mg/dL (0.5-1.3)
[2024-12-29 18:28] LABS: ALBUMIN 3.4 g/dL (3.5-5.0); BILIRUBIN,TOTAL 0.9 mg/dL (0.2-1.0); MAGNESIUM 2.5 mg/dL (1.80-2.40); TOTAL PROTEIN, SERUM 8.5 g/dL (6.0-8.3)
--- NOTE | 2024-12-29 18:42 | NUR ---
ADMISSION Received pt to room 216 from ER. Pt AAO, appropriate. VS as recorded. Reports ongoing left lateral chest wall discomfort but is in no acute distress. Denies chest pain, pressure or tightness. On NC O2 on arrival. Fine crackles to RLL upon auscultation of breath sounds - diminished LLL, clear upper lobes. Skin is warm, dry. SL intact to left forearm.
--- NOTE | 2024-12-29 19:01 | NUR ---
CARDIO Spoke to by phone - update given. states he will see pt in AM.
[2024-12-29] MEDS: PANTOPrazole 40 MG/VIAL IVP SCH (20:18)
[2024-12-29] MEDS: atorVAStatin 40 MG TABLET PO SCH (20:19)
--- NOTE | 2024-12-29 20:39 | CONS ---
[facility] CONSULTATION NOTE Date Patient Seen: Dec 29, 2024 Time of Visit: 20:33 Supervising Physician: Victorino Davis MD Reason for Consultation: Acute hypoxic respiratory failure Consulting Physician: Luisito Mcleod Outpatient Specialists: [ ] Inpatient Consults: [ ] PROBLEM LIST: Acute hypoxic respiratory failure, POA CHF in acute exacerbation, EF of 25-30%, stage III diastolic dysfunction, POA NSTEMI, POA Transaminitis, likely congestive hepatopathy Acute kidney injury, POA Bilateral pleural effusion, POA Multifocal pneumonia, POA Electrolyte abnormality, POA Cardiomegaly, POA Hypertension, POA Morbid obesity, BMI of 58.3 Obesity hypoventilation syndrome ARABELLA, on CPAP at home History of occasional use of tobacco and alcohol PLAN: Continue ICU care- patient looks stable can be downgraded to PCCU in a.m. BiPAP at night Increase Lasix to 60 mg IV Q 8 hours -if continues to require more oxygen might need Lasix drip Fluid restriction to 1.5 L per day Strict I&O Keep head of bed above 30 Daily weight Continue levofloxacin Monitor temperature curve Obtain COVID flu test if not done Bilateral SCDs Continue cardiac monitoring Aspiration precautions Rest of plan care of Cardiology and primary HPI: 39-year-old male with past medical history of hypertension, congestive heart failure, morbid obesity, ARABELLA on CPAP, tobacco and alcohol use who presented to ED with complaint of worsening shortness of breaths and left- sided chest pain and found to have CHF in acute exacerbation, acute hypoxic respiratory failure, NSTEMI, and acute kidney injury. Apparently patient presented to ER yesterday with complaint of upper respiratory tract infection, but was sent home with cough medicine and antibiotics. Today he presented with above-mentioned complaint. Patient was initially admitted to the floor but upgraded to ICU for closer monitoring. [facility] for critical care evaluation and BiPAP management. Initial lab work in ED showed hemoglobin of 12.3, hematocrit of 38.3, his chemi stry is notable for creatinine level of 1.6, troponin level of 104, up from 89, BNP of 807, AST of 87, and ALT of 121. Chest x-ray was done and showed cardiomegaly, with pulmonary vascular congestion, stat CT of the chest was also done and showed multifocal pneumonia. Stat 2D echo was also done and showed EF of 25-30%, with stage III diastolic dysfunction. Patient was initiated on Lasix IV and started on antibiotics. Patient was seen and examined in his room with present at bedside. Patient is currently sitting in bedside chair, according to the patient he has been off Lasix and Aldactone for a week now. Patient recently moved from [place] here for work related activity. At present patient is currently hemodynamically stable, on 2 L of oxygen with appropriate oxygen saturation, alert and oriented, with complaint of shortness of breaths and wheezing. Patient denies any headache, but complains of cough, nonproductive, still with left-sided chest pain worse with deep breathing. Denies any fever, abdominal pain, difficulty urinating, or exposure to sick people. PAST MEDICAL HX: see above PAST SURGICAL HX: noncontributory SOCIAL HISTORY: Occasional tobacco and alcohol use, denies illicit drug use Coded Allergies: Penicillins (Unverified Allergy, Unknown, 12/28/24) REVIEW OF SYSTEMS: 12 point ROS reviewed with patient. Pertinent positives mentioned above. Otherwise negative. PHYSICAL EXAM: GENERAL: alert, weak, awake oriented x 3 HEENT: EOMI, Sclera non icteric, moist mucosa NECK: Supple, no JVD, trachea midline LUNGS: Scattered wheezing HEART: Regular rate and rhythm. Normal S1 and S2, without murmurs ABD: Large abdomen Bowel sounds present EXT: 2+ bilateral pitting edema NEURO: Alert and oriented to person, follows commands Vital Signs (last 8hr) Date Time Temp Pulse Resp B/P (MAP) Pulse Ox O2 Delivery O2 Flow Rate FiO2 12/29/24 18:45 79 24 147/80 96 Nasal Cannula 2.0 12/29/24 18:42 98.1 148/70 Nasal Cannula 2.0 12/29/24 17:24 98.1 89 24 124/84 98 Nasal Cannula 2.0 28 12/29/24 16:00 98.4 29 133/93 98 Nasal Cannula 2.0 28 12/29/24 13:51 84 20 N/Cannula Low lpm 4.0 12/29/24 13:49 84 20 LABS: Hematology Labs: Test 12/29/24 01:45 Range/Units White Blood Count 5.8 4.8-10.8 K/uL Red Blood Count 4.75 4.50-6.20 MIL/uL Hemoglobin 12.3 L 14.0-18.0 g/dL Hematocrit 38.3 L 42-54 % Mean Corpuscular Volume 80.6 79-99 fL Mean Corpuscular Hemoglobin 25.9 L 27.0-33.0 pg Mean Corpuscular Hemoglobin Concent 32.1 32.0-36.0 g/dL Red Cell Distribution Width 15.0 11.0-15.5 % Platelet Count 239 130-400 K/uL Mean Platelet Volume 12.4 H 7.5-10.5 fL Immature Granulocyte % (Auto) 0.3 0-1 % Neutrophils (%) (Auto) 73.8 40.0-77.0 % Lymphocytes (%) (Auto) 12.7 L 21.0-51.0 % Monocytes (%) (Auto) 13.0 3.0-13.0 % Eosinophils (%) (Auto) 0.0 0.0-8.0 % Basophils (%) (Auto) 0.2 0.0-5.0 % Neutrophils # (Auto) 4.3 1.8-7.7 K/uL Lymphocytes # (Auto) 0.7 L 1.0-4.8 K/uL Monocytes # (Auto) 0.8 0.1-1.0 K/uL Eosinophils # (Auto) 0.00 0.00-0.70 K/uL Basophils # (Auto) 0.01 0.00-0.20 K/uL Absolute Immature Granulocyte (auto 0.02 0-1 K/uL Nucleated Red Blood Cells 0.0 0.0-0.19 % Chemistry Labs: Test 12/29/24 19:13 12/29/24 16:49 12/29/24 01:45 Range/Units Whole Blood Glucose 143 H 70-110 MG/DL Sodium Level 140 136-145 mmol/L Potassium Level 4.0 3.5-5.1 mmol/L Chloride Level 101 101-111 mmol/L Carbon Dioxide Level 27 21-32 mmol/L Blood Urea Nitrogen 23 H 7-18 mg/dL Creatinine 1.6 H 0.5-1.3 mg/dL Glomerular Filtration Rate Calc 55 >90 mL/min Random Glucose 147 H 70-105 mg/dL Total Calcium 9.1 8.5-10.1 mg/dL Magnesium Level 2.50 H 1.80-2.40 mg/dL Total Bilirubin 0.9 0.2-1.0 mg/dL Aspartate Amino Transf (AST/SGOT) 80 H 10-37 U/L Alanine Aminotransferase (ALT/SGPT) 121 H 12-78 U/L Alkaline Phosphatase 63 50-136 U/L Troponin I High Sensitivity 104 *H 4-75 ng/L Total Protein 8.5 H 6.0-8.3 g/dL Albumin 3.4 L 3.5-5.0 g/dL B-Type Natriuretic Peptide 807 H 0-100 pg/mL Coagulation Labs: Test 12/29/24 09:53 12/29/24 01:45 Range/Units D-Dimer Quantitative (PE/DVT) 738 *H 0-500 ng/mL Prothrombin Time 10.8 9.6-11.6 SEC Prothromb Time International Ratio 1.02 0.85-1.15 Activated Partial Thromboplast Time 25.3 L 26.3-35.5 SEC DIAGNOSTICS / RADIOLOGY RESULTS: PORTABLE CHEST RADIOGRAPH INDICATION: COUGH/ RIB PAIN COMPARISON: 12/28/2024 at 11:08 AM FINDINGS: Heart and pulmonary vascularity are enlarged. No abnormal pulmonary parenchymal opacity or consolidation identified. No significant pleural effusion noted. No pneumothorax detected. IMPRESSION: Cardiomegaly and pulmonary vascular congestion. CT CHEST WITHOUT CONTRAST INDICATION: Left-sided chest pain TECHNIQUE: Routine axial images using 5 mm slice thickness were acquired from the lung apices to the bases without the administration of IV contrast.Coronal and sagittal reformatted images acquired for interpretation. CT was performed with one or more of the following dose reduction techniques: Automated exposure control, adjustment of the mA and/or kV according to patient size, or use of iterative reconstruction technique. COMPARISON: None FINDINGS: Extensive gantry artifact due to large patient body habitus. The heart size is normal. No pericardial effusion noted. The visualized great vessels and thoracic aorta are within normal limits. The trachea and airways are patent. Inferior right upper lobe, right lower lobe, and left lower lobe "ground-glass"/nodular opacities. No axillary, hilar, or mediastinal lymphadenopathy. No pleural effusion or pneumothorax identified. Limited views of the upper abdomen appear normal. Visible osseous structures are intact. IMPRESSION: Limitations as reported. Bilateral lung pneumonia, without pneumothorax. PLAN NEURO: Minimize central acting medications as possible. Fall Precautions. Well lighted room through the day and minimize interruptions through the night to prevent acute delirium. PULMONARY: Supplemental 02 as needed Titrate Fio2 to keep Spo2 > or = 90% Loco and CPT as needed IS hourly while awake for pulmonary hygiene Out of bed to chair as tolerated CARDIOVASCULAR: Follow hemodynamics. Titrate vasopressor to keep MAP >65 or systolic blood pressure >95mmHg DIPS: LINES: PIV GI & NUTRITION: Continue nutritional support Aspirations precautions Prokinetic agents and laxatives as needed KIDNEYS & ELECTROLYTES: Strict monitoring of intake and output Daily weights Avoid nephrotoxic agents Monitor electrolytes and replace as needed Goal urine output of 30mL/hr or 0.5mL/kg/hr Urine output: [ ] Fluid Balance: [ ] ENDOCRINE: Maintain blood glucose between 100-180 at all times. Insulin sliding scale for blood glucose management INFECTIOUS DISEASE: Trend temperature. Dow-culture if febrile. Micro: [ ] Antibiotics: Levofloxacin HEMATOLOGY & COAGULATION: Monitor H&H. Keep Hgb > 7 Transfuse 1 unit of PRBC for Hgb < 7 Transfuse 1 pack of platelets of platelets < 20, 000 Watch for any signs and symptoms of bleeding SKIN: Pressure ulcer prevention per facility protocol Rehab: PT/OT Prophylaxis: GI: [ ] DVT: Heparin subQ Code Status: Full Resuscitation Disposition: ICU, can be downgraded PCU Other: Total patient care time exceeds 35 minutes excluding all procedures. Supervising physician: MIKE Juárez APRN Dec 29, 2024 20:39
[2024-12-29] MEDS ORDERED: PANTOPrazole 40 MG/VIAL IVP SCH (21:00)
[2024-12-29 21:07] LABS: MAGNESIUM 2.4 mg/dL (1.80-2.40)
[2024-12-29] MEDS ORDERED: furoSEMIDE 40MG VIAL IV SCH (21:30)
[2024-12-29] MEDS: furoSEMIDE 20MG VIAL IV ONE (21:50)
[2024-12-29] MEDS: ALBUTEROL 0.083% 2.5 MG/3 ML INH IH SCH (22:29)
[2024-12-30] VITALS (62 sets, daily range): BP systolic 109–160; BP diastolic 43–91; PULSE 58–103; RESP 10–41; TEMP 97.3–98.2; O2SAT 95–98
[2024-12-30] MEDS: furoSEMIDE 40MG VIAL IV SCH (04:40)
[2024-12-30 04:42] LABS: HEMATOCRIT 36.5 % (42-54); MEAN CORPUSCULAR HEMOGLOBIN 25.6 pg (27.0-33.0); MEAN CORPUSCULAR HGB CONC 32.1 g/dL (32.0-36.0); MEAN CORPUSCULAR VOLUME 79.9 fL (79-99); RED BLOOD CELL COUNT(AUTO) 4.57 MIL/uL (4.50-6.20); RED CELL DISTRIBUTION WIDTH 15.1 % (11.0-15.5); WHITE BLOOD COUNT (AUTO) 5.8 K/uL (4.8-10.8)
[2024-12-30 04:56] LABS: CREATININE 1.6 mg/dL (0.5-1.3); MAGNESIUM 2.3 mg/dL (1.80-2.40); PHOSPHORUS 4.8 mg/dL (2.5-4.9); POTASSIUM 3.7 mmol/L (3.5-5.1)
--- NOTE | 2024-12-30 06:59 | NUR ---
RAD V/Q SCAN: [facility] MED ([place]) LEAF CONDITIONER WAS PAGED @ 1058HRS ON 12/29/2024. RN STATED PT IS NOT ABLE TO LAY FLAT FOR THIS EXAM. EXAM ON HOLD UNTIL FURTHER NOTICE. DG
[2024-12-30] MEDS ORDERED: IpraTROPium/alBUTERol SULFATE 3 ML SOLUTION IH PRN (09:00)
[2024-12-30] MEDS ORDERED: PANTOPrazole 40 MG/VIAL IVP SCH (09:00)
[2024-12-30 10:00] LABS: HIV 1&2 ANTIBODY Non-Reactive (Negative); HIV-1 p24 Antigen Non-Reactive (Negative)
[2024-12-30] MEDS ORDERED: ALBUTEROL 0.083% 2.5 MG/3 ML INH IH SCH (10:00)
[2024-12-30] MEDS: Solu-medROL 40MG VIAL IVP SCH (10:00)
[2024-12-30] MEDS: Solu-medROL 40MG VIAL ONE (10:13)
[2024-12-30] MEDS: LoSARTan 50 MG TABLET PO SCH (10:19)
[2024-12-30] MEDS: carVEDIlol 12.5 MG TABLET PO SCH (10:19)
--- NOTE | 2024-12-30 10:20 | NUR ---
PT BED AND CHAIR ALRM REFUSED, PT REEDUCATED ABOUT THE IMPORTANCE OF ALARM SYSTEM AND PREVENTION OF FALLS. PT VOICED UNDERSTANDING, CALL HAMMER PLACED AT BEDSIDE. REFUSAL CONSENT IN CHART.
--- NOTE | 2024-12-30 11:10 | NUR ---
AUTHORIZATION FOR RELEASE OF MEDICAL RECORDS FAXED TO DR. JOAQUIN LUNA, [facility] AND [facility], PENDING ON RETURN OF INFORMATION.
--- NOTE | 2024-12-30 12:33 | HMCIMG ---
US VENOUS DOPPLER BILATERAL HISTORY: Edema COMPARISON: None TECHNIQUE: Bilateral lower extremity venous Doppler ultrasound study was performed. FINDINGS: The common femoral, femoral, popliteal, and posterior tibial veins are visualized. Normal flow with compressibilities are demonstrated. The greater saphenous veins are also seen and grossly patent. The study is limited due to patient's large body. IMPRESSION: 1. No evidence of deep venous thrombosis is seen.
[2024-12-30] MEDS: furoSEMIDE 20MG VIAL IV SCH ×2 (12:58→21:05)
--- NOTE | 2024-12-30 14:38 | CONS ---
CARDIOLOGY CONSULTATION LOCATION: He is in room 216. REFERRING PHYSICIAN: Juan Daniel Salinas MD REASON FOR REFERRAL: Shortness of breath/congestive heart failure. HISTORY OF PRESENT ILLNESS: This 39-year-old man came back to the Emergency Room on 12/29/2024 because of increasing cough and sharp chest pain. He had been previously seen in the Emergency Room on 12/28/2024 because of cough. When he arrived in the Emergency Room on 12/29/2024, his blood pressure was 149/103, heart rate 99. His chest x-ray was read as showing cardiomegaly and pulmonary vascular congestion. The CT scan of the chest showed no evidence of pneumothorax, but did show bilateral lung pneumonia. The echocardiogram was read as showing ejection fraction 25-30% with mild-moderate mitral regurgitation. The electrocardiogram showed normal sinus rhythm with occasional PVCs. Left atrial enlargement. The patient just moved to this area 1 week ago. He has no cardiac records, but has seen a director of business continuity in the past in [place], [place]. He remembers medications including Lasix, spironolactone and potassium only. PAST CARDIAC HISTORY: The patient states that years ago, he saw a director of business continuity in [place], [place]. He states that a cardiac catheterization was done from the right radial approach. He states that he was told that there were no blockages, but does not remember any other cardiac information or discussion in terms of a previous echocardiogram. ALLERGIES: PENICILLIN. PHYSICAL EXAMINATION: GENERAL: The patient is a well-developed, well-nourished, obese man, in no acute distress. VITAL SIGNS: Last blood pressure 149/91, heart rate 83, weight 172.8 kilograms/380 pounds. LUNGS: There are end expiratory wheezes bilaterally. NECK: There is no obvious JVD or HJR. Carotids are normal. HEART: S1 is soft, S2 single. There is no obvious S3 or S4. There is a grade 1/6 systolic murmur at the lower left sternal border. No diastolic murmurs, no pericardial friction rubs. ABDOMEN: The abdomen is obese, but not distended. Bowel sounds are positive. No obvious bruits. EXTREMITIES: There is 1+ edema bilaterally. The popliteal pulses are intact. LABORATORY DATA: Troponins 108, 103, 101, 104, 89. Potassium 3.7, magnesium 2.3, BUN 28, creatinine 1.6. Glomerular filtration rate 55. B-type natriuretic peptide 313. 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 PLAN: Carvedilol in addition to losartan will be added to the medical regimen. We will request records. TID: [id number] RECEIPT: [id number]
--- NOTE | 2024-12-30 15:26 | PN ---
[facility] PROGRESS NOTE Date of Service: Dec 30, 2024 Time of Service: 15:19 SUBJECTIVE: 12/30 patient seen at bedside, no acute events overnight. Patient feels improved after aggressive diuresis. He has been afebrile, hemodynamically stable saturating well on 2 L nasal cannula. Hemoglobin decreased from 12.3 down to 11.7, creatinine stable at 1.6, same as yesterday remainder of his labs are relatively unremarkable. Patient reporting a cardiac history however does not know the specifics of his heart history, reports he has been on diuretics. 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 Most read again echo here shows decreased ejection fraction at 25-30% and stage III diastolic dysfunction. We will follow up with Cardiology for further recommendations. Patient with notable wheeze on physical exam, heart is a history of smoking, we will continue with Solu-Medrol and nebulizer treatments. REVIEW OF SYSTEMS ROS reviewed with patient. All pertinent positives mentioned above. Otherwise negative, noncontributory, non-pertinent. PHYSICAL EXAM GENERAL APPEARANCE: The patient is awake, alert, and oriented, in no acute cardiopulmonary distress. NEUROLOGICAL: Cranial nerves II-XII grossly intact. Motor is 5/5 in bilateral upper and lower extremities proximal to distal. No sensory deficits. HEENT: Face is symmetric. Pupils are equal and reactive. Extraocular movements are intact. NECK: Supple. No JVD. No thyromegaly. No submental, submandibular, pre- /postauricular, occipital or supraclavicular lymphadenopathy. CHEST: Normal chest expansion. No Telemetry. LUNGS: Crackles. Absence of any rales, rhonchi or any wheezing. CARDIOVASCULAR: Regular. S1 and S2 normal. No appreciable rubs, murmurs or gallops. ABDOMEN: Obese. Soft, nontender, and nondistended. There is no rebound, voluntary guarding, or rigidity. : Deferred. No Duarte. EXTREMITIES: Not cyanotic. No clubbing. Good capillary refill. Bilateral lower extremity edema. SKIN: No skin breakdown. Vital Signs (last 8hr) Date Time Temp Pulse Resp B/P (MAP) Pulse Ox O2 Delivery O2 Flow Rate FiO2 12/30/24 14:48 73 21 12/30/24 12:10 96 Nasal Cannula* 2 N/A Bi-PAP+ 12/30/24 12:00 88 21 96 Nasal Cannula 2.0 12/30/24 12:00 98.2 12/30/24 11:47 103 21 146/75 93 Nasal Cannula 2.0 12/30/24 11:00 79 21 95 12/30/24 10:45 84 20 141/69 93 12/30/24 10:23 78 24 12/30/24 10:19 160/81 12/30/24 10:00 88 21 93 12/30/24 09:45 83 21 160/81 95 Nasal Cannula 2.0 12/30/24 09:00 87 21 94 12/30/24 08:45 82 21 127/78 93 12/30/24 08:00 97.5 89 22 94 Nasal Cannula 2.0 12/30/24 08:00 96 Nasal Cannula* 2 N/A Bi-PAP+ 12/30/24 07:45 83 22 149/91 93 12/30/24 07:30 87 22 95 LABS: Laboratory: Test 12/30/24 10:29 12/30/24 04:29 12/29/24 20:36 12/29/24 16:49 Range/Units Whole Blood Glucose 161 H 70-110 MG/DL White Blood Count 5.8 4.8-10.8 K/uL Red Blood Count 4.57 4.50-6.20 MIL/uL Hemoglobin 11.7 L 14.0-18.0 g/dL Hematocrit 36.5 L 42-54 % Mean Corpuscular Volume 79.9 79-99 fL Mean Corpuscular Hemoglobin 25.6 L 27.0-33.0 pg Mean Corpuscular Hemoglobin Concent 32.1 32.0-36.0 g/dL Red Cell Distribution Width 15.1 11.0-15.5 % Platelet Count 271 130-400 K/uL Mean Platelet Volume 12.3 H 7.5-10.5 fL Nucleated Red Blood Cells 0.0 0.0-0.19 % Sodium Level 137 136-145 mmol/L Potassium Level 3.7 3.5-5.1 mmol/L Chloride Level 99 L 101-111 mmol/L Carbon Dioxide Level 29 21-32 mmol/L Blood Urea Nitrogen 28 H 7-18 mg/dL Creatinine 1.6 H 0.5-1.3 mg/dL Glomerular Filtration Rate Calc 55 >90 mL/min Random Glucose 135 H 70-105 mg/dL Total Calcium 8.3 L 8.5-10.1 mg/dL Phosphorus Level 4.8 2.5-4.9 mg/dL Magnesium Level 2.30 1.80-2.40 mg/dL B-Type Natriuretic Peptide 313 H 0-100 pg/mL HIV (1&2) Antibody Non-Reactive Negative HIV P24 Antigen, Qualitative Non-Reactive Negative Troponin I High Sensitivity 89 *H 4-75 ng/L Total Bilirubin 0.9 0.2-1.0 mg/dL Aspartate Amino Transf (AST/SGOT) 80 H 10-37 U/L Alanine Aminotransferase (ALT/SGPT) 121 H 12-78 U/L Alkaline Phosphatase 63 50-136 U/L Total Protein 8.5 H 6.0-8.3 g/dL Albumin 3.4 L 3.5-5.0 g/dL Test 12/29/24 16:26 12/29/24 09:53 12/29/24 01:45 Range/Units Blood Gas Specimen Type Arterial Arterial Blood pH 7.422 7.350-7.450 Arterial Blood Partial Pressure CO2 38 35-48 mmHg Arterial Blood Partial Pressure O2 77.5 L 83.0-108.0 mmHg Arterial Blood HCO3 24.1 21.0-28.0 mmol/L Arterial Blood Oxygen Saturation 94.6 94.0-98.0 % Arterial Blood Base Excess -0.1 -2.0-3.0 mmol/L Hemoglobin (Blood Gas) 13.5 13.5-17.5 g/dL Sodium (Blood Gas) 137 136-145 MMOL/L Bedside Potassium (Blood Gas) 3.9 3.4-4.5 MMOL/L Bedside Chloride (Blood Gas) 101 98-107 MMOL/L Bedside Glucose (Blood Gas) 147 H 65-95 MG/DL Bedside Ionized Calcium (Blood Gas) 1.14 L 1.15-1.33 MMOL/L Bedside Lactic Acid (Blood Gas) 2.09 H 0.36-0.75 MMOL/L Blood Gas Temperature 37.0 35.5-37.0 CELSIUS Blood Gas Flow-by 2.00 0.00-15.00 L/min Blood Gas Vent Mode NC ROOM AIR FiO2 28.0 % Blood Gas Specimen Comment RR NEOBI D-Dimer Quantitative (PE/DVT) 738 *H 0-500 ng/mL Immature Granulocyte % (Auto) 0.3 0-1 % Neutrophils (%) (Auto) 73.8 40.0-77.0 % Lymphocytes (%) (Auto) 12.7 L 21.0-51.0 % Monocytes (%) (Auto) 13.0 3.0-13.0 % Eosinophils (%) (Auto) 0.0 0.0-8.0 % Basophils (%) (Auto) 0.2 0.0-5.0 % Neutrophils # (Auto) 4.3 1.8-7.7 K/uL Lymphocytes # (Auto) 0.7 L 1.0-4.8 K/uL Monocytes # (Auto) 0.8 0.1-1.0 K/uL Eosinophils # (Auto) 0.00 0.00-0.70 K/uL Basophils # (Auto) 0.01 0.00-0.20 K/uL Absolute Immature Granulocyte (auto 0.02 0-1 K/uL Prothrombin Time 10.8 9.6-11.6 SEC Prothromb Time International Ratio 1.02 0.85-1.15 Activated Partial Thromboplast Time 25.3 L 26.3-35.5 SEC Current Medications Medications (Trade) Dose Ordered Sig/Afia Route PRN Reason Start Time Stop Time Status Last Admin Dose Admin Acetaminophen (TYLenol 325MG TAB) 650 mg Q6H PRN PO FEVER/MILD PAIN LEVEL 1-3 12/29/24 03:30 01/28/25 03:29 12/30/24 08:29 650 MG Acetaminophen (TYLenol 650MG SUPPOSITORY) 650 mg Q6H PRN RC FEVER / MILD PAIN 1-3 IF NPO 12/29/24 03:30 01/28/25 03:29 Albuterol (DUOneb) 1 UDVIAL Q6H PRN IH SHORTNESS OF BREATH 12/30/24 09:00 12/30/24 09:02 DC Albuterol Sulfate (Proventil 0.083% 2.5mg/3ml) 2.5 mg Q4H4 IH 12/29/24 21:30 12/30/24 07:00 DC 12/30/24 06:20 2.5 MG Albuterol Sulfate (Proventil 0.083% 2.5mg/3ml) 2.5 mg [id number] IH 12/30/24 10:00 3/3/25 09:00 DC Albuterol Sulfate (Proventil 0.083% 2.5mg/3ml) 2.5 mg [id number] PRN IH SHORTNESS OF BREATH 12/29/24 03:30 12/29/24 21:19 DC Aspirin (Aspirin 81mg Chew Tab) 81 mg DAILY PO 12/29/24 09:00 01/28/25 08:59 12/30/24 08:27 81 MG Atorvastatin Calcium (LIPItor 40MG) 40 mg HS PO 12/29/24 21:00 01/28/25 20:59 12/29/24 20:19 40 MG Carvedilol (Coreg 12.5MG) 12.5 mg BID PO 12/30/24 10:00 01/29/25 09:59 12/30/24 10:19 12.5 MG Dexmedetomidine/ Sodium Chloride (PRECEdex 400MCG/ 100ML-NS) 400 mcg PROTOCOL IV 12/29/24 16:30 01/28/25 16:29 Dextrose (D50w) 50 ml AD PRN IV HYPOGLYCEMIA PROTOCOL 12/29/24 09:30 01/28/25 09:29 Docusate Sodium (COLace 100MG CAP) 100 mg BID PRN PO c 12/29/24 03:30 01/28/25 03:29 12/29/24 10:34 100 MG Furosemide (LASix 20MG VIAL) 60 mg Q8H IV 12/30/24 13:30 01/29/25 05:29 12/30/24 12:58 60 MG Furosemide (LASix 40MG VIAL) 40 mg Q12H IV 12/29/24 08:30 12/29/24 21:02 DC 12/29/24 20:20 40 MG Furosemide (LASix 40MG VIAL) 60 mg Q8H IV 12/30/24 05:30 12/30/24 08:17 DC 12/30/24 04:40 60 MG Furosemide (LASix 40MG VIAL) 60 mg Q8H5 IV 12/29/24 21:30 12/29/24 21:29 DC Glucagon (Glucagon 1mg Kit) 1 mg AD PRN IM HYPOGLYCEMIA PROTOCOL 12/29/24 09:30 01/28/25 09:29 Guaifenesin (RobiTUSSin SUGAR-FREE 100 MG/ 5 ML UDCUP) 400 mg Q4H4 PRN PO SHORTNESS OF BREATH/WHEEZING 12/29/24 10:00 01/28/25 09:29 12/30/24 00:48 400 MG Guaifenesin (RobiTUSSin SUGAR-FREE 100 MG/ 5 ML UDCUP) 600 mg Q4H4 PRN PO SHORTNESS OF BREATH/WHEEZING 12/29/24 09:30 12/29/24 09:35 DC Heparin Sodium (Porcine) (HEParin 5,000 UNIT VIAL) 5,000 unit Q12H SQ 12/29/24 08:30 01/28/25 08:29 12/30/24 08:30 5,000 UNIT Hydralazine HCl (APRESOLine 20MG INJ) 10 mg Q2H PRN IV SBP GREATER THAN 160 12/29/24 03:30 01/28/25 03:29 Insulin Human Regular (humuLIN R 100 UNIT/ML 3ML) INSULIN SLIDING SCAL... ACHS SQ 12/29/24 07:30 01/28/25 07:29 Ipratropium [place] (AtrovENT UD) 0.5 mg [id number] IH 12/29/24 10:00 01/28/25 09:59 12/30/24 14:44 0.5 MG Ipratropium [place] (AtrovENT UD) 0.5 mg [id number] PRN IH SHORTNESS OF BREATH/WHEEZING 12/29/24 03:30 12/30/24 09:00 DC Lactulose (Constulose 20gm/ 30ml Udcup) 20 gm Q6H PRN PO CONSTIPATION 12/29/24 03:30 01/28/25 03:29 Levofloxacin/ Dextrose 150 ml @ 100 mls/hr Q24H IV 12/29/24 10:00 01/08/25 09:59 12/30/24 09:58 100 MLS/HR Levofloxacin/ Dextrose (LEvaquIN 750 MG/ D5W 150 ML) 750 mg Q24H IV 12/29/24 09:30 12/29/24 09:12 DC Lidocaine (Lidocaine Patch 4%) 1 each DAILY TP 12/29/24 09:30 01/28/25 09:29 12/30/24 08:27 1 EACH Losartan Potassium (CozAAR 50 mg TAB) 50 mg DAILY PO 12/30/24 10:30 01/29/25 10:29 12/30/24 10:19 50 MG Losartan Potassium (CozAAR 50 mg TAB) 50 mg DAILY PO 12/31/24 09:00 12/30/24 10:09 DC Magnesium Sulfate 50 ml @ 0 mls/hr PROTOCOL PRN IV MAGNESIUM PROTOCOL 12/29/24 09:30 01/28/25 09:29 Methylprednisolone Sodium Succinate (Solu-medROL 40MG) 60 mg Q6H IVP 12/30/24 11:00 01/28/25 14:59 12/30/24 10:00 60 MG Methylprednisolone Sodium Succinate (Solu-medROL 125MG) 60 mg Q6H IVP 12/29/24 15:00 12/30/24 08:17 DC 12/30/24 04:40 60 MG Nitroglycerin (Nitroglycerin 1gm Oint) 1 inch Q8H TD 12/29/24 09:00 01/28/25 08:59 12/30/24 08:28 1 INCH Ondansetron HCl (zoFRAN 4MG INJ) 4 mg Q6H PRN IVP NAUSEA/VOMITING 12/29/24 03:30 01/28/25 03:29 Pantoprazole Sodium (PROTonix 40MG INJ) 40 mg BID IVP 12/29/24 21:00 12/29/24 10:34 DC Pantoprazole Sodium (PROTonix 40MG INJ) 40 mg BID IVP 12/29/24 21:00 01/28/25 20:59 12/30/24 08:28 40 MG Pantoprazole Sodium (PROTonix 40MG INJ) 40 mg DAILY IVP 12/30/24 09:00 12/29/24 16:16 DC Potassium Chloride 100 ml @ 50 mls/hr AD PRN IV POTASSIUM PROTOCOL 12/29/24 09:30 01/28/25 09:29 Potassium Chloride (K-Dur/Klor-Con 20meq) 20 meq AD PRN PO POTASSIUM PROTOCOL 12/29/24 10:30 01/28/25 10:29 12/30/24 10:21 20 MEQ Potassium Chloride (KCl 10% Elixir 20meq/15ml) 20 meq AD PRN PO POTASSIUM PROTOCOL 12/29/24 10:30 01/28/25 10:29 Spironolactone (Aldactone 25mg) 25 mg BID PO 12/29/24 09:00 4/1/25 08:59 12/30/24 08:28 25 MG Temazepam (restORIL 15 MG CAP) 15 mg HS PRN PO INSOMNIA/SLEEP 12/29/24 03:30 01/28/25 03:29 DIAGNOSTICS / RADIOLOGY: [ ] ASSESSMENT: Acute CHF with exacerbation combined systolic and diastolic, EF 25-30%, stage III diastolic dysfunction POA NSTEMI, elevated troponins, POA Volume overload, POA, noncompliant with fluid restriction and diuretics CKD stage 3 Community-acquired pneumonia, ruled out POA Pulmonary vascular congestion, POA Cardiomegaly, POA Anemia chronic disease kidney disease, POA Uncontrolled hypertension Morbidly obese, BMI 58.3 History of tobacco use PLAN: -Monitor respiratory status closely. -Continue oxygen therapy as needed. Titrate oxygen prn to keep Spo2>/+=92%. -BiPAP as needed for shortness of breath. -Atrovent q.4 hours scheduled. -Aspirin 81 mg p.o. daily. -Atorvastatin 40 mg PO daily. -Lasix 60 mg IV TID. -spironolactone 25 mg b.i.d. -carvedilol 12.5 mg b.i.d. -Nitroglycerin paste t.i.d.. -cardiology consulted, appreciate recommendations -lidocaine patch as needed for to rib pain. -Strict I&O. -Fluid restriction 1,200 mls in 24 hours. -Daily weight. -Solu-Medrol 60 mg IV q.6 hours. -Antibiotic therapy: Levaquin 750 mg IV daily. Disposition: Pending improvement in clinical status, medical records, Cardiology recommendations CATHY CHRISTENSEN MD Dec 30, 2024 15:26
[2024-12-30 16:25] LABS: AMPHET/METH SCREEN,URINE NEGATIVE (NEGATIVE); BARBITURATE SCREEN, URINE NEGATIVE (NEGATIVE); BENZODIAZEPINES SCREEN,URINE NEGATIVE (NEGATIVE); CANNABINOID SCREEN,URINE POSITIVE (NEGATIVE); COCAINE SCREEN,URINE NEGATIVE (NEGATIVE); OPIATE SCREEN,URINE NEGATIVE (NEGATIVE); PHENCYCLIDINE SCREEN,URINE NEGATIVE (NEGATIVE)
--- NOTE | 2024-12-30 17:24 | NUR ---
Pt awake, alert, oriented x3 lives with spouse Steffanie Escobar [phone]. Pt states he does not use any medical equipment. and is independent currently employed. Pt states in 2020 pt had a stroke and was receiving physical therapy at [facility]. Provided pt with [facility] and anticipated discharge is for home. Addendum: 12/30/24 at 1728 by PILO RENAE RN CM Amended: Links added.
--- NOTE | 2024-12-30 18:56 | NUR ---
JO ANN TELEPHONE ORDER CLERK MADE AWARE OF PT COMPLAINING OF CHEST PRESSURE RIGHT AFTER NEBULIZER TREATMENTS GIVEN. EKG ORDERED, CARDIAC PANEL , TORDAL 15MG IV TO BE GIVEN, REPEAT EKG IN 15 MINUTES AND DC ALL NEB TREATMENTS, WELL FOR CHEST XRAY. EKG PERFORMED AND DEMONSTRATED TO JO ANN WORTHY .
--- NOTE | 2024-12-30 19:12 | NUR ---
DR. VICENTE PAGED AT THIS TIME TO INFORM OF PT STATUS, PENDING CALL BACK.
[2024-12-30] MEDS: ketOROlac 15MG/ML VIAL (15MG/ML) IV STA (19:13)
[2024-12-30] MEDS: morPHINE 4 MG SYG IVP ONE (19:21)
[2024-12-30 19:58] LABS: CREATINE KINASE, TOTAL 577 U/L (21-232)
--- NOTE | 2024-12-30 20:38 | NUR ---
1999- [facility] called back and stated no one customer care voice consultant for Dr. coyle - noted, called [facility] and made [facility] armature bander aware. Patient felt better after morphine iv given x1 dose for chest pain, helped pt more comfortable no pain voiced after that. education on chf and pna, pt also has an enlarged heart that can be causing the pressure in chest. pt stated the pressure felt more like gas accumulated stated he has not gone to the restroom in 3 days and feels gassy but unable to release gas. EKG no acute findings sent to armature bander, new order start simethicone and lactulose for constipation. noted and carried out made pt aware.
--- NOTE | 2024-12-30 21:01 | PN ---
[facility] PROGRESS NOTE Date Patient Seen: Dec 30, 2024 Time of Visit: 09:00 Supervising Physician: Dustin Matta MD Consulting Physician: [facility]patient Specialists: [ ] Inpatient Consults: [ ] PROBLEM LIST: Recurrent chest pain on 12/30/24 HEART Score 5 Acute hypoxic respiratory failure, POA CHF in acute exacerbation, EF of 25-30%, stage III diastolic dysfunction, POA Non ischemic dilated cardiomyopathy Cardiac Asthma, POA NSTEMI, POA Transaminitis, likely congestive hepatopathy Acute kidney injury, POA Bilateral pleural effusion, POA Multifocal pneumonia, POA Electrolyte abnormality, POA Cardiomegaly, POA Hypertension, POA Morbid obesity, BMI of 58.3 Obesity hypoventilation syndrome ARABELLA, on CPAP at home History of occasional use of tobacco and alcohol PLAN: Pt high risk of decompensation, BiPAP at night continue Lasix to 40 mg IV Q 8 hours -if continues to require more oxygen might need Lasix drip Fluid restriction to 1.5 L per day Strict I&O Keep head of bed above 30 Daily weight Continue levofloxacin Monitor temperature curve Obtain COVID flu test if not done Bilateral SCDs Continue cardiac monitoring Aspiration precautions Rest of plan care of Cardiology and primary INTERVAL HISTORY: Pt is awake alert and oriented in no respiratory distress at this time . Although wheezing auscultated throughout lobes. Pt does report intermittent chest pain after nebulizer treatment. Will stop nebs to avoid chest pain. Pt continues with Abx with Levaquin. He is on high dose pushes of diuretics. 60mg IV q8hrs. we will continue this since he is diuresing well. We will consider lasix drip if decreased urine output. Pt to continue steroids for severe pneumonia, urine output was 3.5 L in the last 24 hours with a balance of -2L, on CBC unremarkable. Chemistries BUN 28 creatinine of 1.6 GFR of 55 with a glucose of 137 mg/dL. Albumin 3.4 and total protein 8.5. AST 80, ALT 121 total bili 0.9. Venous Doppler to bilateral lower extremities no evidence of DVT. We will continue ICU monitoring for today and if respiratory status improves ok to downgrade. INfluenza A /B and Covid 19 negative on 12/30/24. Pt developed chest pain to left side after neb treatment we will stop nebs and monitor serial cardiac enzymes. Pt to continue with ASA, Carvedilol, atorvastatin, Nitro paste q8H prn, Follow cardiology recommendations. REVIEW OF SYSTEMS: 12 point ROS reviewed with patient. Pertinent positives mentioned above. Otherwise negative. PHYSICAL EXAM: GENERAL: alert, weak, awake oriented x 3 HEENT: EOMI, Sclera non icteric, moist mucosa NECK: Supple, no JVD, trachea midline LUNGS: Scattered wheezing HEART: Regular rate and rhythm. Normal S1 and S2, without murmurs ABD: Large abdomen Bowel sounds present EXT: 2+ bilateral pitting edema NEURO: Alert and oriented to person, follows commands Vital Signs (last 8hr) Date Time Temp Pulse Resp B/P (MAP) Pulse Ox O2 Delivery O2 Flow Rate FiO2 12/30/24 19:10 79 19 134/80 97 Nasal Cannula 2.0 12/30/24 19:00 76 19 96 Nasal Cannula 2.0 12/30/24 18:45 80 10 128/85 95 Nasal Cannula 2.0 12/30/24 18:28 75 24 N/Cannula Low lpm 2.0 12/30/24 18:27 80 27 12/30/24 18:00 78 16 94 12/30/24 17:45 68 41 132/55 99 Nasal Cannula 2.0 12/30/24 17:00 77 21 96 12/30/24 16:51 97.5 12/30/24 16:45 76 21 132/62 97 Nasal Cannula 2.0 12/30/24 16:24 96 Nasal Cannula* 2 N/A Bi-PAP+ 12/30/24 16:00 75 21 97 Nasal Cannula 2.0 12/30/24 15:45 73 21 136/75 97 Nasal Cannula 2.0 12/30/24 15:00 75 21 96 12/30/24 14:48 73 21 12/30/24 14:45 75 21 131/73 96 12/30/24 14:00 78 21 95 12/30/24 13:45 78 21 135/56 95 Nasal Cannula 2.0 12/30/24 13:00 80 21 95 12/30/24 12:45 83 21 140/78 95 Nasal Cannula 2.0 LABS: Hematology Labs: Test 12/30/24 04:29 12/29/24 01:45 Range/Units White Blood Count 5.8 4.8-10.8 K/uL Red Blood Count 4.57 4.50-6.20 MIL/uL Hemoglobin 11.7 L 14.0-18.0 g/dL Hematocrit 36.5 L 42-54 % Mean Corpuscular Volume 79.9 79-99 fL Mean Corpuscular Hemoglobin 25.6 L 27.0-33.0 pg Mean Corpuscular Hemoglobin Concent 32.1 32.0-36.0 g/dL Red Cell Distribution Width 15.1 11.0-15.5 % Platelet Count 271 130-400 K/uL Mean Platelet Volume 12.3 H 7.5-10.5 fL Nucleated Red Blood Cells 0.0 0.0-0.19 % Immature Granulocyte % (Auto) 0.3 0-1 % Neutrophils (%) (Auto) 73.8 40.0-77.0 % Lymphocytes (%) (Auto) 12.7 L 21.0-51.0 % Monocytes (%) (Auto) 13.0 3.0-13.0 % Eosinophils (%) (Auto) 0.0 0.0-8.0 % Basophils (%) (Auto) 0.2 0.0-5.0 % Neutrophils # (Auto) 4.3 1.8-7.7 K/uL Lymphocytes # (Auto) 0.7 L 1.0-4.8 K/uL Monocytes # (Auto) 0.8 0.1-1.0 K/uL Eosinophils # (Auto) 0.00 0.00-0.70 K/uL Basophils # (Auto) 0.01 0.00-0.20 K/uL Absolute Immature Granulocyte (auto 0.02 0-1 K/uL Chemistry Labs: Test 12/30/24 19:26 12/30/24 16:32 12/30/24 04:29 12/29/24 16:49 Range/Units Total Creatine Kinase 577 *H 21-232 U/L Troponin I High Sensitivity 54 4-75 ng/L Whole Blood Glucose 155 H 70-110 MG/DL Sodium Level 137 136-145 mmol/L Potassium Level 3.7 3.5-5.1 mmol/L Chloride Level 99 L 101-111 mmol/L Carbon Dioxide Level 29 21-32 mmol/L Blood Urea Nitrogen 28 H 7-18 mg/dL Creatinine 1.6 H 0.5-1.3 mg/dL Glomerular Filtration Rate Calc 55 >90 mL/min Random Glucose 135 H 70-105 mg/dL Total Calcium 8.3 L 8.5-10.1 mg/dL Phosphorus Level 4.8 2.5-4.9 mg/dL Magnesium Level 2.30 1.80-2.40 mg/dL B-Type Natriuretic Peptide 313 H 0-100 pg/mL Total Bilirubin 0.9 0.2-1.0 mg/dL Aspartate Amino Transf (AST/SGOT) 80 H 10-37 U/L Alanine Aminotransferase (ALT/SGPT) 121 H 12-78 U/L Alkaline Phosphatase 63 50-136 U/L Total Protein 8.5 H 6.0-8.3 g/dL Albumin 3.4 L 3.5-5.0 g/dL Coagulation Labs: Test 12/29/24 09:53 12/29/24 01:45 Range/Units D-Dimer Quantitative (PE/DVT) 738 *H 0-500 ng/mL Prothrombin Time 10.8 9.6-11.6 SEC Prothromb Time International Ratio 1.02 0.85-1.15 Activated Partial Thromboplast Time 25.3 L 26.3-35.5 SEC DIAGNOSTICS / RADIOLOGY RESULTS: [ ] IMAGING REPORT Signed PATIENT: SURENDRA BURGOS MR#: [id number] : 1985 SEX: M AGE: 39 LOCATION: [facility] ORDER [id number] STATUS: ADM IN REPORT#: [id number] SERVICE [id number] REASON: rule out DVT ORDERING PHYSICIAN: KYRIE CHERRY PROCEDURE: VENOUS NOMAN - US VENOUS DOPPLER BILATERAL US VENOUS DOPPLER BILATERAL HISTORY: Edema COMPARISON: None TECHNIQUE: Bilateral lower extremity venous Doppler ultrasound study was performed. FINDINGS: The common femoral, femoral, popliteal, and posterior tibial veins are visualized. Normal flow with compressibilities are demonstrated. The greater saphenous veins are also seen and grossly patent. The study is limited due to patient's large body. IMPRESSION: 1. No evidence of deep venous thrombosis is seen. DICTATED BY: KAVIN JACINTO MD DATE: 12/30/24 1229 ELECTRONICALLY SIGNED BY: KAVIN JACINTO MD DATE: 12/30/24 1233 PLAN NEURO: Minimize central acting medications as possible. Fall Precautions. Well lighted room through the day and minimize interruptions through the night to prevent acute delirium. PULMONARY: Supplemental 02 as needed Titrate Fio2 to keep Spo2 > or = 90% DuoNebs and CPT as needed IS hourly while awake for pulmonary hygiene Out of bed to chair as tolerated CARDIOVASCULAR: Follow hemodynamics. Titrate vasopressor to keep MAP >65 or systolic blood pressure >95mmHg DRIPS: LINES: PIV GI & NUTRITION: Continue nutritional support Aspirations precautions Prokinetic agents and laxatives as needed KIDNEYS & ELECTROLYTES: Strict monitoring of intake and output Daily weights Avoid nephrotoxic agents Monitor electrolytes and replace as needed Goal urine output of 30mL/hr or 0.5mL/kg/hr Urine output: [ ] Fluid Balance: [ ] ENDOCRINE: Maintain blood glucose between 100-180 at all times. Insulin sliding scale for blood glucose management INFECTIOUS DISEASE: Trend temperature. Dow-culture if febrile. Micro: [ ] Antibiotics: Levofloxacin HEMATOLOGY & COAGULATION: Monitor H&H. Keep Hgb > 7 Transfuse 1 unit of PRBC for Hgb < 7 Transfuse 1 pack of platelets of platelets < 20, 000 Watch for any signs and symptoms of bleeding SKIN: Pressure ulcer prevention per facility protocol Rehab: PT/OT Prophylaxis: GI: Protonix DVT: Heparin subQ Code Status: Full Resuscitation Disposition: TBD Other: Total patient care time exceeds 35 minutes excluding all procedures. KYRIE CHERRY Dec 30, 2024 21:01
[2024-12-30] MEDS: SIMETHICONE 80 MG TAB.CHEW PO PRN (21:06)
[2024-12-31] VITALS (34 sets, daily range): BP systolic 97–162; BP diastolic 45–78; PULSE 47–79; RESP 14–26; TEMP 97.6–98.2; O2SAT 96–98
[2024-12-31 04:10] LABS: BASOPHILS # (AUTO) 0.01 K/uL (0.00-0.20); BASOPHILS % (AUTO) 0.1 % (0.0-5.0); HEMATOCRIT 36.1 % (42-54); IMMATURE GRANULOCYTE ABSOLUTE 0.04 K/uL (0-1); LYMPHOCYTES # (AUTO) 1.5 K/uL (1.0-4.8); LYMPHOCYTES % (AUTO) 12.9 % (21.0-51.0); MEAN CORPUSCULAR HEMOGLOBIN 25.6 pg (27.0-33.0); MEAN CORPUSCULAR HGB CONC 31.6 g/dL (32.0-36.0); MEAN CORPUSCULAR VOLUME 80.9 fL (79-99); MONOCYTES # (AUTO) 0.7 K/uL (0.1-1.0); MONOCYTES % (AUTO) 6.2 % (3.0-13.0); NEUTROPHILS # (AUTO) 9.3 K/uL (1.8-7.7); NEUTROPHILS % (AUTO) 80.5 % (40.0-77.0); PLATELET COUNT (AUTO) 311 K/uL (130-400); RED BLOOD CELL COUNT(AUTO) 4.46 MIL/uL (4.50-6.20); RED CELL DISTRIBUTION WIDTH 15.1 % (11.0-15.5); WHITE BLOOD COUNT (AUTO) 11.5 K/uL (4.8-10.8)
[2024-12-31 04:39] LABS: ALBUMIN 2.8 g/dL (3.5-5.0); BILIRUBIN,TOTAL 0.6 mg/dL (0.2-1.0); CREATININE 1.8 mg/dL (0.5-1.3); POTASSIUM 3.8 mmol/L (3.5-5.1); TOTAL PROTEIN, SERUM 7.1 g/dL (6.0-8.3)
[2024-12-31] MEDS: proPOFol 1000 MG/100 ML 100 ML IV ONE (05:06)
[2024-12-31 05:57] LABS: LYMPHOCYTES % (MANUAL) 20 % (22-44); MAN.DIFF COMMENT-IMPRESSION MANUAL DIFFERENTIAL; MONOCYTES % (MANUAL) 2 % (2-9); SEGMENTED NEUTROPHILS % 78 % (40-70); TOTAL CELLS COUNTED 100
[2024-12-31 05:59] LABS: PLATELET MORPHOLOGY COMMENT ADEQUATE; WBC MORPHOLOGY VACUOLATION 1+
--- NOTE | 2024-12-31 06:35 | EKG ---
[facility] Test Date: 2024-12-30 Test Time: 18:46:08 Pat Name: SURENDRA BURGOS Department: [facility] Room: 221 Gender: M Sas Administrator: rodri : 1985 Requested By: KYRIE CHERRY Order Number: [id number] Reading MD: Scott Fernandez Measurements Intervals [place] Rate: 80 P: 63 MA: 166 QRS: 47 QRSD: 108 T: 70 QT: 392 QTc: 453 Interpretive Statements Sinus rhythm Ventricular premature complex LAE, consider biatrial enlargement ST elev, probable normal early repol pattern Compared to ECG 12/29/2024 08:31:52 ST (T wave) deviation now present Electronically Signed On 01-01-2025 12:44:32 [employer]IEF by Scott Fernandez Please click the below link to view image of tracing.
--- NOTE | 2024-12-31 06:35 | EKG ---
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 : 1985 Requested By: KYRIE CHERRY Order Number: [id number] Reading MD: Scott Fernandez Measurements Intervals [place] Rate: 79 P: 60 NV: 171 QRS: 41 QRSD: 107 T: 88 QT: 404 QTc: 463 Interpretive Statements Sinus rhythm LAE, consider biatrial enlargement Nonspecific T abnormalities, lateral leads ST elev, probable normal early repol pattern Compared to ECG 12/30/2024 18:46:08 T-wave abnormality now present Ventricular premature complex(es) no longer present ST (T wave) deviation still present Electronically Signed On 01-01-2025 12:44:49 DIE BAKER by Scott Fernandez Please click the below link to view image of tracing.
--- NOTE | 2024-12-31 08:53 | HMCIMG ---
PORTABLE CHEST RADIOGRAPH INDICATION: PAIN UPON BREATHING. COMPARISON: 12/29/2024 FINDINGS: telemetry monitor leads overlie the field of view. Image is somewhat underexposed, but the radiologic examination is still believed to be of reasonable diagnostic quality. Heart remains enlarged. The pulmonary vascularity and malinda appear normal. Bibasilar lung opacities without consolidation. No significant pleural effusion noted. No pneumothorax detected. IMPRESSION: Bibasilar pneumonia. Follow-up chest radiograph is advised in order to ensure resolution. Cardiomegaly without pulmonary vascular congestion.
[2024-12-31] MEDS ORDERED: LoSARTan 50 MG TABLET PO SCH (09:00)
--- NOTE | 2024-12-31 11:46 | PN ---
[facility] PROGRESS NOTE Date Patient Seen: Dec 31, 2024 Time of Visit: 11:46 Supervising Physician: Dr. Matta Consulting Physician: [facility] Outpatient Specialists: [ ] Inpatient Consults: [ ] PROBLEM LIST: Recurrent chest pain on 12/30/24 HEART Score 5 Acute hypoxic respiratory failure, POA CHF in acute exacerbation, EF of 25-30%, stage III diastolic dysfunction, POA Non ischemic dilated cardiomyopathy Cardiac Asthma, POA NSTEMI, POA Transaminitis, likely congestive hepatopathy Acute kidney injury, POA Bilateral pleural effusion, POA Multifocal pneumonia, POA Electrolyte abnormality, POA Cardiomegaly, POA Hypertension, POA Morbid obesity, BMI of 58.3 Obesity hypoventilation syndrome ARABELLA, on CPAP at home History of occasional use of tobacco and alcohol INTERVAL HISTORY: Pt is awake alert and oriented in no respiratory distress at this time . Although wheezing auscultated throughout lobes. Pt does report intermittent chest pain after nebulizer treatment. Will stop nebs to avoid chest pain. Pt continues with Abx with Levaquin. He is on high dose pushes of diuretics. 60mg IV q8hrs. we will continue this since he is diuresing well. We will consider lasix drip if decreased urine output. Pt to continue steroids for severe pneumonia, urine output was 3.5 L in the last 24 hours with a balance of -2L, on CBC unremarkable. Chemistries BUN 28 creatinine of 1.6 GFR of 55 with a glucose of 137 mg/dL. Albumin 3.4 and total protein 8.5. AST 80, ALT 121 total bili 0.9. Venous Doppler to bilateral lower extremities no evidence of DVT. We will continue ICU monitoring for today and if respiratory status improves ok to downgrade. INfluenza A /B and Covid 19 negative on 12/30/24. Pt developed chest pain to left side after neb treatment we will stop nebs and monitor serial cardiac enzymes. Pt to continue with ASA, Carvedilol, atorvastatin, Nitro paste q8H prn, Follow cardiology recommendations. 01/01/2024: At the time of my evaluation the patient was sitting up to the bedside chair. The staff nurse reports no acute events overnight. He is awake alert and oriented , He is verbally interactive with appropriate responses. Currently, the patient is on room air with optimal saturation she is hemodynamically stable on the monitor. Heart for 5. On chemistry panel the patient has a sodium of 137, potassium of 3.8, chloride 101, CO2 of 31, BUN 38 and creatinine of 1.8 with a blood glucose of 117. Patient is a cumulative balance negative one seven total CK 433. CBC showed a WBC of 11.5, H&H 11.4/36.1 and a platelet count of 311 antibiotic therapy the patient is on Levaquin. No labs were available for review today. Patient has mellitus balance of positive 2287. No other complaint. REVIEW OF SYSTEMS: 12 point ROS reviewed with patient. Pertinent positives mentioned above. Otherwise negative. PHYSICAL EXAM: GENERAL: alert, weak, awake oriented x 3 HEENT: EOMI, Sclera non icteric, moist mucosa NECK: Supple, no JVD, trachea midline LUNGS: Scattered wheezing HEART: Regular rate and rhythm. Normal S1 and S2, without murmurs ABD: Large abdomen Bowel sounds present EXT: 2+ bilateral pitting edema NEURO: Alert and oriented to person, follows commands Vital Signs (last 8hr) Date Time Temp Pulse Resp B/P (MAP) Pulse Ox O2 Delivery O2 Flow Rate FiO2 12/31/24 08:30 66 20 N/A Room Air 21 12/31/24 08:05 127/78 12/31/24 08:00 79 23 127/78 96 Nasal Cannula 2.0 12/31/24 08:00 97 Nasal Cannula* 2 N/A Bi-PAP+ 12/31/24 07:30 98.1 12/31/24 07:00 54 15 126/64 99 BIPAP 40 12/31/24 06:30 55 18 98 BIPAP 40 12/31/24 06:00 53 18 12/31/24 05:45 71 15 138/59 97 BIPAP 40 12/31/24 05:30 71 20 12/31/24 05:00 73 18 96 BIPAP 40 12/31/24 04:45 53 14 110/55 97 12/31/24 04:30 59 20 96 BIPAP 40 12/31/24 04:00 54 17 95 LABS: Hematology Labs: Test 12/31/24 03:37 Range/Units White Blood Count 11.5 #H 4.8-10.8 K/uL Red Blood Count 4.46 L 4.50-6.20 MIL/uL Hemoglobin 11.4 L 14.0-18.0 g/dL Hematocrit 36.1 L 42-54 % Mean Corpuscular Volume 80.9 79-99 fL Mean Corpuscular Hemoglobin 25.6 L 27.0-33.0 pg Mean Corpuscular Hemoglobin Concent 31.6 L 32.0-36.0 g/dL Red Cell Distribution Width 15.1 11.0-15.5 % Platelet Count 311 130-400 K/uL Mean Platelet Volume 12.8 H 7.5-10.5 fL Immature Granulocyte % (Auto) 0.3 0-1 % Neutrophils (%) (Auto) 80.5 H 40.0-77.0 % Lymphocytes (%) (Auto) 12.9 L 21.0-51.0 % Monocytes (%) (Auto) 6.2 3.0-13.0 % Eosinophils (%) (Auto) 0.0 0.0-8.0 % Basophils (%) (Auto) 0.1 0.0-5.0 % Neutrophils # (Auto) 9.3 H 1.8-7.7 K/uL Lymphocytes # (Auto) 1.5 1.0-4.8 K/uL Monocytes # (Auto) 0.7 0.1-1.0 K/uL Eosinophils # (Auto) 0.00 0.00-0.70 K/uL Basophils # (Auto) 0.01 0.00-0.20 K/uL Absolute Immature Granulocyte (auto 0.04 0-1 K/uL Segmented Neutrophils % 78 H 40-70 % Lymphocytes % (Manual) 20 L 22-44 % Monocytes % (Manual) 2 2-9 % Nucleated Red Blood Cells 0.0 0.0-0.19 % Differential Comment MANUAL DIFFERENTIAL White Cell Morphology Comment VACUOLATION 1+ Platelet Morphology Comment ADEQUATE Red Blood Cell Morphology See comments Chemistry Labs: Test 12/31/24 10:30 12/31/24 09:21 12/31/24 03:37 12/30/24 04:29 Range/Units Whole Blood Glucose 158 H 70-110 MG/DL Total Creatine Kinase 389 H 21-232 U/L Troponin I High Sensitivity 43.8 4-75 ng/L Sodium Level 137 136-145 mmol/L Potassium Level 3.8 3.5-5.1 mmol/L Chloride Level 101 101-111 mmol/L Carbon Dioxide Level 31 21-32 mmol/L Blood Urea Nitrogen 38 H 7-18 mg/dL Creatinine 1.8 H 0.5-1.3 mg/dL Glomerular Filtration Rate Calc 48 >90 mL/min Random Glucose 117 H 70-105 mg/dL Lactic Acid Level 1.6 0.8-2.5 mmol/L Total Calcium 8.6 8.5-10.1 mg/dL Total Bilirubin 0.6 0.2-1.0 mg/dL Aspartate Amino Transf (AST/SGOT) 69 H 10-37 U/L Alanine Aminotransferase (ALT/SGPT) 172 H 12-78 U/L Alkaline Phosphatase 50 50-136 U/L Total Protein 7.1 6.0-8.3 g/dL Albumin 2.8 L 3.5-5.0 g/dL Phosphorus Level 4.8 2.5-4.9 mg/dL Magnesium Level 2.30 1.80-2.40 mg/dL B-Type Natriuretic Peptide 313 H 0-100 pg/mL DIAGNOSTICS / RADIOLOGY RESULTS: [ ] PLAN 01/01/2024: For now, going to continue current management for the patient. We will continue to monitor her oxygen saturation and we will adjust as necessary. We will follow the recommendation with treating specialist. We will repeat surveillance labs in the morning. We will monitor the patient's progress and response to management. We will continue to provide general supportive care, GI and DVT prophylaxis. Further orders per attending MD and hospital course. NEURO: Minimize central acting medications as possible. Fall Precautions. Well lighted room through the day and minimize interruptions through the night to prevent acute delirium. PULMONARY: Supplemental 02 as needed Titrate Fio2 to keep Spo2 > or = 90% DuoNebs and CPT as needed IS hourly while awake for pulmonary hygiene Out of bed to chair as tolerated CARDIOVASCULAR: Follow hemodynamics. Titrate vasopressor to keep MAP >65 or systolic blood pressure >95mmHg DRIPS: LINES: PIV GI & NUTRITION: Continue nutritional support Aspirations precautions Prokinetic agents and laxatives as needed KIDNEYS & ELECTROLYTES: Strict monitoring of intake and output Daily weights Avoid nephrotoxic agents Monitor electrolytes and replace as needed Goal urine output of 30mL/hr or 0.5mL/kg/hr Urine output: [ ] Fluid Balance: [ ] ENDOCRINE: Maintain blood glucose between 100-180 at all times. Insulin sliding scale for blood glucose management INFECTIOUS DISEASE: Trend temperature. Dow-culture if febrile. Micro: [ ] Antibiotics: Levofloxacin HEMATOLOGY & COAGULATION: Monitor H&H. Keep Hgb > 7 Transfuse 1 unit of PRBC for Hgb < 7 Transfuse 1 pack of platelets of platelets < 20, 000 Watch for any signs and symptoms of bleeding SKIN: Pressure ulcer prevention per facility protocol Rehab: PT/OT Prophylaxis: GI: Protonix DVT: Heparin subQ Code Status: Full Resuscitation Disposition: TBD Other: Total patient care time exceeds 35 minutes excluding all procedures. ROMANA CORDOVA NP Dec 31, 2024 11:46
[2024-12-31 16:45] LABS: MAGNESIUM 2.6 mg/dL (1.80-2.40); POTASSIUM 3.8 mmol/L (3.5-5.1)
--- NOTE | 2024-12-31 16:57 | PN ---
[facility] PROGRESS NOTE Date of Service: Dec 31, 2024 Time of Service: 16:52 SUBJECTIVE: 3 patient seen at bedside, no acute events overnight. Patient feels improved after aggressive diuresis. He has been afebrile, hemodynamically stable saturating well on 2 L nasal cannula. Hemoglobin decreased from 12.3 down to 11.7, creatinine stable at 1.6, same as yesterday remainder of his labs are relatively unremarkable. Patient reporting a cardiac history however does not know the specifics of his heart history, reports he has been on diuretics. 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 Most read again echo here shows decreased ejection fraction at 25-30% and stage III diastolic dysfunction. We will follow up with Cardiology for further recommendations. Patient with notable wheeze on physical exam, heart is a history of smoking, we will continue with Solu-Medrol and nebulizer treatments. 12/31 patient seen at bedside, last night he reported some chest pressure however this morning he believes it was due to gas pains, repeat troponins showed a continued downtrend. He continues to diurese well and he is audible wheeze has resolved. 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 He has had a dramatic drop in ejection fraction since that last evaluation. He reported a possible heart catheterization however I was unable to appreciate any documentation regarding that procedure. We will follow up with Cardiology recommendations. He has been afebrile, hemodynamically stable saturating well on room air. WBC increased from 5.8 up to 11.5 however he was started on systemic steroids, hemoglobin stable at 11.4, similar to yesterday, creatinine increased from 1.6 up to 1.8, BUN increased from 28 up to 38 which may suggest he is reaching his dry weight we will continue with diuresis and reassess again tomorrow REVIEW OF SYSTEMS ROS reviewed with patient. All pertinent positives mentioned above. Otherwise negative, noncontributory, non-pertinent. PHYSICAL EXAM GENERAL APPEARANCE: The patient is awake, alert, and oriented, in no acute cardiopulmonary distress. NEUROLOGICAL: Cranial nerves II-XII grossly intact. Motor is 5/5 in bilateral upper and lower extremities proximal to distal. No sensory deficits. HEENT: Face is symmetric. Pupils are equal and reactive. Extraocular movements are intact. NECK: Supple. No JVD. No thyromegaly. No submental, submandibular, pre- /postauricular, occipital or supraclavicular lymphadenopathy. CHEST: Normal chest expansion. No Telemetry. LUNGS: Crackles. Absence of any rales, rhonchi or any wheezing. CARDIOVASCULAR: Regular. S1 and S2 normal. No appreciable rubs, murmurs or gallops. ABDOMEN: Obese. Soft, nontender, and nondistended. There is no rebound, voluntary guarding, or rigidity. : Deferred. No Duarte. EXTREMITIES: Not cyanotic. No clubbing. Good capillary refill. Bilateral lo wer extremity edema. SKIN: No skin breakdown. Vital Signs (last 8hr) Date Time Temp Pulse Resp B/P (MAP) Pulse Ox O2 Delivery O2 Flow Rate FiO2 12/31/24 16:18 97.7 74 18 112/62 98 Room Air 12/31/24 15:44 98 Room Air* 0 N/A Bi-PAP+ 12/31/24 12:00 97.9 69 25 119/63 96 Room Air 12/31/24 12:00 97 Room Air* 0 N/A Bi-PAP+ 12/31/24 11:00 70 23 127/65 96 Room Air 12/31/24 10:00 72 18 162/74 96 Room Air 12/31/24 09:00 72 21 135/61 96 Nasal Cannula 2.0 LABS: Laboratory: Test 12/31/24 16:07 12/31/24 16:03 12/31/24 16:00 12/31/24 03:37 Range/Units Potassium Level 3.8 3.5-5.1 mmol/L Magnesium Level 2.60 H 1.80-2.40 mg/dL Whole Blood Glucose 140 H 70-110 MG/DL Total Creatine Kinase 359 H 21-232 U/L Troponin I High Sensitivity 36.5 4-75 ng/L White Blood Count 11.5 #H 4.8-10.8 K/uL Red Blood Count 4.46 L 4.50-6.20 MIL/uL Hemoglobin 11.4 L 14.0-18.0 g/dL Hematocrit 36.1 L 42-54 % Mean Corpuscular Volume 80.9 79-99 fL Mean Corpuscular Hemoglobin 25.6 L 27.0-33.0 pg Mean Corpuscular Hemoglobin Concent 31.6 L 32.0-36.0 g/dL Red Cell Distribution Width 15.1 11.0-15.5 % Platelet Count 311 130-400 K/uL Mean Platelet Volume 12.8 H 7.5-10.5 fL Immature Granulocyte % (Auto) 0.3 0-1 % Neutrophils (%) (Auto) 80.5 H 40.0-77.0 % Lymphocytes (%) (Auto) 12.9 L 21.0-51.0 % Monocytes (%) (Auto) 6.2 3.0-13.0 % Eosinophils (%) (Auto) 0.0 0.0-8.0 % Basophils (%) (Auto) 0.1 0.0-5.0 % Neutrophils # (Auto) 9.3 H 1.8-7.7 K/uL Lymphocytes # (Auto) 1.5 1.0-4.8 K/uL Monocytes # (Auto) 0.7 0.1-1.0 K/uL Eosinophils # (Auto) 0.00 0.00-0.70 K/uL Basophils # (Auto) 0.01 0.00-0.20 K/uL Absolute Immature Granulocyte (auto 0.04 0-1 K/uL Segmented Neutrophils % 78 H 40-70 % Lymphocytes % (Manual) 20 L 22-44 % Monocytes % (Manual) 2 2-9 % Nucleated Red Blood Cells 0.0 0.0-0.19 % Differential Comment MANUAL DIFFERENTIAL White Cell Morphology Comment VACUOLATION 1+ Platelet Morphology Comment ADEQUATE Red Blood Cell Morphology See comments Sodium Level 137 136-145 mmol/L Chloride Level 101 101-111 mmol/L Carbon Dioxide Level 31 21-32 mmol/L Blood Urea Nitrogen 38 H 7-18 mg/dL Creatinine 1.8 H 0.5-1.3 mg/dL Glomerular Filtration Rate Calc 48 >90 mL/min Random Glucose 117 H 70-105 mg/dL Lactic Acid Level 1.6 0.8-2.5 mmol/L Total Calcium 8.6 8.5-10.1 mg/dL Total Bilirubin 0.6 0.2-1.0 mg/dL Aspartate Amino Transf (AST/SGOT) 69 H 10-37 U/L Alanine Aminotransferase (ALT/SGPT) 172 H 12-78 U/L Alkaline Phosphatase 50 50-136 U/L Total Protein 7.1 6.0-8.3 g/dL Albumin 2.8 L 3.5-5.0 g/dL Test 12/30/24 04:29 Range/Units Phosphorus Level 4.8 2.5-4.9 mg/dL B-Type Natriuretic Peptide 313 H 0-100 pg/mL HIV (1&2) Antibody Non-Reactive Negative HIV P24 Antigen, Qualitative Non-Reactive Negative Current Medications Medications (Trade) Dose Ordered Sig/Afia Route PRN Reason Start Time Stop Time Status Last Admin Dose Admin Acetaminophen (TYLenol 325MG TAB) 650 mg Q6H PRN PO FEVER/MILD PAIN LEVEL 1-3 12/29/24 03:30 01/28/25 03:29 12/30/24 08:29 650 MG Acetaminophen (TYLenol 650MG SUPPOSITORY) 650 mg Q6H PRN RC FEVER / MILD PAIN 1-3 IF NPO 12/29/24 03:30 01/28/25 03:29 Albuterol (DUOneb) 1 UDVIAL Q6H PRN IH SHORTNESS OF BREATH 12/30/24 09:00 12/30/24 09:02 DC Albuterol Sulfate (Proventil 0.083% 2.5mg/3ml) 2.5 mg Q4H4 IH 12/29/24 21:30 12/30/24 07:00 DC 12/30/24 06:20 2.5 MG Albuterol Sulfate (Proventil 0.083% 2.5mg/3ml) 2.5 mg [id number] IH 12/30/24 10:00 12/30/24 09:00 DC Albuterol Sulfate (Proventil 0.083% 2.5mg/3ml) 2.5 mg [id number] PRN IH SHORTNESS OF BREATH 12/29/24 03:30 12/29/24 21:19 DC Aspirin (Aspirin 81mg Chew Tab) 81 mg DAILY PO 12/29/24 09:00 01/28/25 08:59 12/31/24 08:05 81 MG Atorvastatin Calcium (LIPItor 40MG) 40 mg HS PO 12/29/24 21:00 01/28/25 20:59 12/30/24 21:05 40 MG Carvedilol (Coreg 12.5MG) 12.5 mg BID PO 12/30/24 10:00 01/29/25 09:59 12/31/24 08:05 12.5 MG Dexmedetomidine/ Sodium Chloride (PRECEdex 400MCG/ 100ML-NS) 400 mcg PROTOCOL IV 12/29/24 16:30 01/28/25 16:29 Dextrose (D50w) 50 ml AD PRN IV HYPOGLYCEMIA PROTOCOL 12/29/24 09:30 01/28/25 09:29 Docusate Sodium (COLace 100MG CAP) 100 mg BID PRN PO c 12/29/24 03:30 01/28/25 03:29 12/29/24 10:34 100 MG Furosemide (LASix 20MG VIAL) 40 mg Q8H IV 12/30/24 21:30 01/29/25 21:29 12/31/24 13:30 40 MG Furosemide (LASix 20MG VIAL) 60 mg Q8H IV 12/30/24 13:30 12/30/24 20:56 DC 12/30/24 12:58 60 MG Furosemide (LASix 40MG VIAL) 40 mg Q12H IV 12/29/24 08:30 12/29/24 21:02 DC 12/29/24 20:20 40 MG Furosemide (LASix 40MG VIAL) 60 mg Q8H IV 12/30/24 05:30 12/30/24 08:17 DC 12/30/24 04:40 60 MG Furosemide (LASix 40MG VIAL) 60 mg Q8H5 IV 12/29/24 21:30 12/29/24 21:29 DC Glucagon (Glucagon 1mg Kit) 1 mg AD PRN IM HYPOGLYCEMIA PROTOCOL 12/29/24 09:30 01/28/25 09:29 Guaifenesin (RobiTUSSin SUGAR-FREE 100 MG/ 5 ML UDCUP) 400 mg Q4H4 PRN PO SHORTNESS OF BREATH/WHEEZING 12/29/24 10:00 01/28/25 09:29 12/30/24 00:48 400 MG Guaifenesin (RobiTUSSin SUGAR-FREE 100 MG/ 5 ML UDCUP) 600 mg Q4H4 PRN PO SHORTNESS OF BREATH/WHEEZING 12/29/24 09:30 12/29/24 09:35 DC Heparin Sodium (Porcine) (HEParin 5,000 UNIT VIAL) 5,000 unit Q12H SQ 12/29/24 08:30 01/28/25 08:29 12/31/24 08:06 5,000 UNIT Hydralazine HCl (APRESOLine 20MG INJ) 10 mg Q2H PRN IV SBP GREATER THAN 160 12/29/24 03:30 01/28/25 03:29 Insulin Human Regular (humuLIN R 100 UNIT/ML 3ML) INSULIN SLIDING SCAL... ACHS SQ 12/29/24 07:30 01/28/25 07:29 Ipratropium Export (AtrovENT UD) 0.5 mg [id number] IH 12/29/24 10:00 12/30/24 18:56 DC 12/30/24 18:25 0.5 MG Ipratropium Export (AtrovENT UD) 0.5 mg [id number] PRN IH SHORTNESS OF BREATH/WHEEZING 12/29/24 03:30 12/30/24 09:00 DC Ketorolac Tromethamine (toRADol) 15 mg ONCE STAT IV 12/30/24 18:53 12/30/24 18:59 DC 12/30/24 19:13 15 MG Lactulose (Constulose 20gm/ 30ml Udcup) 20 gm Q6H PRN PO CONSTIPATION 12/29/24 03:30 01/28/25 03:29 Levofloxacin/ Dextrose 150 ml @ 100 mls/hr Q24H IV 12/29/24 10:00 01/08/25 09:59 12/31/24 10:48 100 MLS/HR Levofloxacin/ Dextrose (LEvaquIN 750 MG/ D5W 150 ML) 750 mg Q24H IV 12/29/24 09:30 12/29/24 09:12 DC Lidocaine (Lidocaine Patch 4%) 1 each DAILY TP 12/29/24 09:30 01/28/25 09:29 12/31/24 08:04 1 EACH Losartan Potassium (CozAAR 50 mg TAB) 50 mg DAILY PO 12/30/24 10:30 01/29/25 10:29 12/31/24 08:04 50 MG Losartan Potassium (CozAAR 50 mg TAB) 50 mg DAILY PO 12/31/24 09:00 12/30/24 10:09 DC Magnesium Sulfate 50 ml @ 0 mls/hr PROTOCOL PRN IV MAGNESIUM PROTOCOL 12/29/24 09:30 01/28/25 09:29 Methylprednisolone Sodium Succinate (Solu-medROL 40MG) 60 mg Q6H IVP 12/30/24 11:00 01/28/25 14:59 12/31/24 16:34 60 MG Methylprednisolone Sodium Succinate (Solu-medROL 125MG) 60 mg Q6H IVP 12/29/24 15:00 12/30/24 08:17 DC 12/30/24 04:40 60 MG Nitroglycerin (Nitroglycerin 1gm Oint) 1 inch Q8H TD 12/29/24 09:00 01/28/25 08:59 12/31/24 16:34 1 INCH Ondansetron HCl (zoFRAN 4MG INJ) 4 mg Q6H PRN IVP NAUSEA/VOMITING 12/29/24 03:30 01/28/25 03:29 Pantoprazole Sodium (PROTonix 40MG INJ) 40 mg BID IVP 12/29/24 21:00 12/29/24 10:34 DC Pantoprazole Sodium (PROTonix 40MG INJ) 40 mg BID IVP 12/29/24 21:00 01/28/25 20:59 12/31/24 08:05 40 MG Pantoprazole Sodium (PROTonix 40MG INJ) 40 mg DAILY IVP 12/30/24 09:00 12/29/24 16:16 DC Potassium Chloride 100 ml @ 50 mls/hr AD PRN IV POTASSIUM PROTOCOL 12/29/24 09:30 01/28/25 09:29 Potassium Chloride (K-Dur/Klor-Con 20meq) 20 meq AD PRN PO POTASSIUM PROTOCOL 12/29/24 10:30 01/28/25 10:29 12/30/24 10:21 20 MEQ Potassium Chloride (KCl 10% Elixir 20meq/15ml) 20 meq AD PRN PO POTASSIUM PROTOCOL 12/29/24 10:30 01/28/25 10:29 Simethicone (Mylicon) 120 mg Q6H PRN PO GI GAS 12/30/24 21:00 01/29/25 20:59 12/30/24 21:06 120 MG Spironolactone (Aldactone 25mg) 25 mg BID PO 12/29/24 09:00 01/28/25 08:59 12/31/24 08:04 25 MG Temazepam (restORIL 15 MG CAP) 15 mg HS PRN PO INSOMNIA/SLEEP 12/29/24 03:30 01/28/25 03:29 DIAGNOSTICS / RADIOLOGY: [ ] ASSESSMENT: Acute CHF with exacerbation combined systolic and diastolic, EF 25-30%, stage III diastolic dysfunction POA NSTEMI, elevated troponins, POA Volume overload, POA, noncompliant with fluid restriction and diuretics CKD stage 3 Community-acquired pneumonia, ruled out POA Pulmonary vascular congestion, POA Cardiomegaly, POA Anemia chronic disease kidney disease, POA Uncontrolled hypertension Morbidly obese, BMI 58.3 History of tobacco use PLAN: -Monitor respiratory status closely. -Continue oxygen therapy as needed. Titrate oxygen prn to keep Spo2>/+=92%. -BiPAP as needed for shortness of breath. -Atrovent q.4 hours scheduled. -Aspirin 81 mg p.o. daily. -Atorvastatin 40 mg PO daily. -Lasix 60 mg IV TID. -spironolactone 25 mg b.i.d. -carvedilol 12.5 mg b.i.d. -Nitroglycerin paste t.i.d.. -cardiology consulted, appreciate recommendations -lidocaine patch as needed for to rib pain. -Strict I&O. -Fluid restriction 1,200 mls in 24 hours. -Daily weight. -Solu-Medrol 60 mg IV q.6 hours. -Antibiotic therapy: Levaquin 750 mg IV daily. Disposition: Pending improvement in clinical statusCardiology recommendations CATHY CHRISTENSEN MD Dec 31, 2024 16:57
[2025-01-01] VITALS (15 sets, daily range): BP systolic 94–136; BP diastolic 42–87; PULSE 50–82; RESP 18–27; TEMP 97.8–98.7; O2SAT 97–100
[2025-01-01 03:56] LABS: BASOPHILS # (AUTO) 0.01 K/uL (0.00-0.20); BASOPHILS % (AUTO) 0.1 % (0.0-5.0); HEMATOCRIT 36.1 % (42-54); IMMATURE GRANULOCYTE ABSOLUTE 0.05 K/uL (0-1); LYMPHOCYTES # (AUTO) 1.5 K/uL (1.0-4.8); MEAN CORPUSCULAR HEMOGLOBIN 25.8 pg (27.0-33.0); MEAN CORPUSCULAR HGB CONC 31.9 g/dL (32.0-36.0); MEAN CORPUSCULAR VOLUME 81.1 fL (79-99); MONOCYTES # (AUTO) 0.5 K/uL (0.1-1.0); MONOCYTES % (AUTO) 4.3 % (3.0-13.0); NEUTROPHILS # (AUTO) 10.3 K/uL (1.8-7.7); NEUTROPHILS % (AUTO) 83.2 % (40.0-77.0); PLATELET COUNT (AUTO) 334 K/uL (130-400); RED BLOOD CELL COUNT(AUTO) 4.45 MIL/uL (4.50-6.20); RED CELL DISTRIBUTION WIDTH 15.3 % (11.0-15.5); WHITE BLOOD COUNT (AUTO) 12.4 K/uL (4.8-10.8)
[2025-01-01 04:16] LABS: ALBUMIN 2.7 g/dL (3.5-5.0); BILIRUBIN,TOTAL 0.5 mg/dL (0.2-1.0); CREATININE 1.7 mg/dL (0.5-1.3); MAGNESIUM 2.7 mg/dL (1.80-2.40); PHOSPHORUS 4.8 mg/dL (2.5-4.9); POTASSIUM 3.8 mmol/L (3.5-5.1)
[2025-01-01 04:18] LABS: B-TYPE NATRIURETIC PEPTIDE 135 pg/mL (0-100)
[2025-01-01] MEDS ORDERED: IpraTROPium 0.5 MG/2.5 ML INH IH SCH (10:00)
[2025-01-01] MEDS: traMADol HCL 50 MG TABLET PO PRN (10:06)
[2025-01-01 10:29] LABS: COVID19 (SARS ANTIGEN RAPID) PRESUMPTIVE NEGATIVE (NEGATIVE); INFLUENZA TYPE A Negative For Type A (NEGATIVE); INFLUENZA TYPE B Negative For Type B (NEGATIVE)
--- NOTE | 2025-01-01 11:03 | PN ---
[facility] PROGRESS NOTE Date of Service: Jan 01, 2025 Time of Service: 10:58 SUBJECTIVE: 12/30 patient seen at bedside, no acute events overnight. Patient feels improved after aggressive diuresis. He has been afebrile, hemodynamically stable saturating well on 2 L nasal cannula. Hemoglobin decreased from 12.3 down to 11.7, creatinine stable at 1.6, same as yesterday remainder of his labs are relatively unremarkable. Patient reporting a cardiac history however does not know the specifics of his heart history, reports he has been on diuretics. 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 Most read again echo here shows decreased ejection fraction at 25-30% and stage III diastolic dysfunction. We will follow up with Cardiology for further recommendations. Patient with notable wheeze on physical exam, heart is a history of smoking, we will continue with Solu-Medrol and nebulizer treatments. 12/31 patient seen at bedside, last night he reported some chest pressure however this morning he believes it was due to gas pains, repeat troponins showed a continued downtrend. He continues to diurese well and he is audible wheeze has resolved. 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 He has had a dramatic drop in ejection fraction since that last evaluation. He reported a possible heart catheterization however I was unable to appreciate any documentation regarding that procedure. We will follow up with Cardiology recommendations. He has been afebrile, hemodynamically stable saturating well on room air. WBC increased from 5.8 up to 11.5 however he was started on systemic steroids, hemoglobin stable at 11.4, similar to yesterday, creatinine increased from 1.6 up to 1.8, BUN increased from 28 up to 38 which may suggest he is reaching his dry weight we will continue with diuresis and reassess again tomorrow 01/01 pt seen at bedside, no acute events overnight. His only complaint is some l eft side/flank pain. He appears to have some bruising within the same distribution however he denies any recent trauma. Will continue to monitor, if Hgb begins downtrending or his pain continues to worsen will consider CT Abdomen/pelvis. Cardiology recommendations pending, will follow up. Approximately 2.5L urine output in the last 24 hours. Diuretic adjusted yesterday, creatinine improved from 1.8 down to 1.7 REVIEW OF SYSTEMS ROS reviewed with patient. All pertinent positives mentioned above. Otherwise negative, noncontributory, non-pertinent. PHYSICAL EXAM GENERAL APPEARANCE: The patient is awake, alert, and oriented, in no acute cardiopulmonary distress. NEUROLOGICAL: Cranial nerves II-XII grossly intact. Motor is 5/5 in bilateral upper and lower extremities proximal to distal. No sensory deficits. HEENT: Face is symmetric. Pupils are equal and reactive. Extraocular movements are intact. NECK: Supple. No JVD. No thyromegaly. No submental, submandibular, pre- /postauricular, occipital or supraclavicular lymphadenopathy. CHEST: Normal chest expansion. No Telemetry. LUNGS: Crackles. Absence of any rales, rhonchi or any wheezing. CARDIOVASCULAR: Regular. S1 and S2 normal. No appreciable rubs, murmurs or gallops. ABDOMEN: Obese. Soft, nontender, and nondistended. There is no rebound, voluntary guarding, or rigidity. : Deferred. No Duarte. EXTREMITIES: Not cyanotic. No clubbing. Good capillary refill. Bilateral lower extremity edema. SKIN: No skin breakdown. Vital Signs (last 8hr) Date Time Temp Pulse Resp B/P (MAP) Pulse Ox O2 Delivery O2 Flow Rate FiO2 01/01/25 08:25 97 Room Air* 0 N/A Bi-PAP+ 01/01/25 07:35 65 20 N/A Room Air 21 01/01/25 07:27 98.8 77 20 108/56 96 Room Air 01/01/25 03:00 98.1 71 18 94/51 99 Room Air LABS: Laboratory: Test 01/01/25 09:50 01/01/25 05:28 01/01/25 03:27 12/31/24 21:00 Range/Units Influenza Type A Antigen Negative For Type A NEGATIVE Influenza Type B Antigen Negative For Type B NEGATIVE SARS-CoV-2 Antigen (Rapid) PRESUMPTIVE NEGATIVE NEGATIVE Whole Blood Glucose 111 H 70-110 MG/DL White Blood Count 12.4 H 4.8-10.8 K/uL Red Blood Count 4.45 L 4.50-6.20 MIL/uL Hemoglobin 11.5 L 14.0-18.0 g/dL Hematocrit 36.1 L 42-54 % Mean Corpuscular Volume 81.1 79-99 fL Mean Corpuscular Hemoglobin 25.8 L 27.0-33.0 pg Mean Corpuscular Hemoglobin Concent 31.9 L 32.0-36.0 g/dL Red Cell Distribution Width 15.3 11.0-15.5 % Platelet Count 334 130-400 K/uL Mean Platelet Volume 12.2 H 7.5-10.5 fL Immature Granulocyte % (Auto) 0.4 0-1 % Neutrophils (%) (Auto) 83.2 H 40.0-77.0 % Lymphocytes (%) (Auto) 12.0 L 21.0-51.0 % Monocytes (%) (Auto) 4.3 3.0-13.0 % Eosinophils (%) (Auto) 0.0 0.0-8.0 % Basophils (%) (Auto) 0.1 0.0-5.0 % Neutrophils # (Auto) 10.3 H 1.8-7.7 K/uL Lymphocytes # (Auto) 1.5 1.0-4.8 K/uL Monocytes # (Auto) 0.5 0.1-1.0 K/uL Eosinophils # (Auto) 0.00 0.00-0.70 K/uL Basophils # (Auto) 0.01 0.00-0.20 K/uL Absolute Immature Granulocyte (auto 0.05 0-1 K/uL Nucleated Red Blood Cells 0.0 0.0-0.19 % Sodium Level 138 136-145 mmol/L Potassium Level 3.8 3.5-5.1 mmol/L Chloride Level 102 101-111 mmol/L Carbon Dioxide Level 31 21-32 mmol/L Blood Urea Nitrogen 42 H 7-18 mg/dL Creatinine 1.7 H 0.5-1.3 mg/dL Glomerular Filtration Rate Calc 51 >90 mL/min Random Glucose 124 H 70-105 mg/dL Total Calcium 8.3 L 8.5-10.1 mg/dL Phosphorus Level 4.8 2.5-4.9 mg/dL Magnesium Level 2.70 H 1.80-2.40 mg/dL Total Bilirubin 0.5 0.2-1.0 mg/dL Aspartate Amino Transf (AST/SGOT) 65 H 10-37 U/L Alanine Aminotransferase (ALT/SGPT) 185 H 12-78 U/L Alkaline Phosphatase 51 50-136 U/L B-Type Natriuretic Peptide 135 H 0-100 pg/mL Total Protein 7.0 6.0-8.3 g/dL Albumin 2.7 L 3.5-5.0 g/dL Total Creatine Kinase 392 H 21-232 U/L Troponin I High Sensitivity 37.2 4-75 ng/L Test 12/31/24 03:37 Range/Units Segmented Neutrophils % 78 H 40-70 % Lymphocytes % (Manual) 20 L 22-44 % Monocytes % (Manual) 2 2-9 % Differential Comment MANUAL DIFFERENTIAL White Cell Morphology Comment VACUOLATION 1+ Platelet Morphology Comment ADEQUATE Red Blood Cell Morphology See comments Lactic Acid Level 1.6 0.8-2.5 mmol/L Current Medications Medications (Trade) Dose Ordered Sig/Afia Route PRN Reason Start Time Stop Time Status Last Admin Dose Admin Acetaminophen (TYLenol 325MG TAB) 650 mg Q6H PRN PO FEVER/MILD PAIN LEVEL 1-3 12/29/24 03:30 01/28/25 03:29 01/01/25 08:11 650 MG Acetaminophen (TYLenol 650MG SUPPOSITORY) 650 mg Q6H PRN RC FEVER / MILD PAIN 1-3 IF NPO 12/29/24 03:30 01/28/25 03:29 Albuterol (DUOneb) 1 UDVIAL Q6H PRN IH SHORTNESS OF BREATH 12/30/24 09:00 12/30/24 09:02 DC Albuterol Sulfate (Proventil 0.083% 2.5mg/3ml) 2.5 mg Q4H4 IH 12/29/24 21:30 12/30/24 07:00 DC 12/30/24 06:20 2.5 MG Albuterol Sulfate (Proventil 0.083% 2.5mg/3ml) 2.5 mg [id number] IH 12/30/24 10:00 12/30/24 09:00 DC Albuterol Sulfate (Proventil 0.083% 2.5mg/3ml) 2.5 mg [id number] PRN IH SHORTNESS OF BREATH 12/29/24 03:30 12/29/24 21:19 DC Aspirin (Aspirin 81mg Chew Tab) 81 mg DAILY PO 12/29/24 09:00 01/28/25 08:59 01/01/25 08:10 81 MG Atorvastatin Calcium (LIPItor 40MG) 40 mg HS PO 12/29/24 21:00 01/28/25 20:59 12/31/24 19:58 40 MG Budesonide (Pulmicort 0.5 Mg/2ml) 0.5 mg BID IH 01/01/25 18:00 01/31/25 17:59 Budesonide (Pulmicort 0.5 Mg/2ml) 0.5 mg BID IH 01/01/25 21:00 01/01/25 09:53 DC Carvedilol (Coreg 12.5MG) 12.5 mg BID PO 12/30/24 10:00 01/29/25 09:59 12/31/24 19:58 12.5 MG Dexmedetomidine/ Sodium Chloride (PRECEdex 400MCG/ 100ML-NS) 400 mcg PROTOCOL IV 12/29/24 16:30 01/01/25 08:08 DC Dextrose (D50w) 50 ml AD PRN IV HYPOGLYCEMIA PROTOCOL 12/29/24 09:30 01/28/25 09:29 Docusate Sodium (COLace 100MG CAP) 100 mg BID PRN PO c 12/29/24 03:30 01/28/25 03:29 12/29/24 10:34 100 MG Furosemide (LASix 20MG VIAL) 40 mg BID IV 01/01/25 21:00 01/29/25 21:29 Furosemide (LASix 20MG VIAL) 40 mg Q8H IV 12/30/24 21:30 01/01/25 09:36 DC 01/01/25 05:54 40 MG Furosemide (LASix 20MG VIAL) 60 mg Q8H IV 12/30/24 13:30 12/30/24 20:56 DC 12/30/24 12:58 60 MG Furosemide (LASix 40MG VIAL) 40 mg Q12H IV 12/29/24 08:30 12/29/24 21:02 DC 12/29/24 20:20 40 MG Furosemide (LASix 40MG VIAL) 60 mg Q8H IV 12/30/24 05:30 12/30/24 08:17 DC 12/30/24 04:40 60 MG Furosemide (LASix 40MG VIAL) 60 mg Q8H5 IV 12/29/24 21:30 12/29/24 21:29 DC Glucagon (Glucagon 1mg Kit) 1 mg AD PRN IM HYPOGLYCEMIA PROTOCOL 12/29/24 09:30 01/28/25 09:29 Guaifenesin (RobiTUSSin SUGAR-FREE 100 MG/ 5 ML UDCUP) 400 mg Q4H4 PRN PO SHORTNESS OF BREATH/WHEEZING 12/29/24 10:00 01/28/25 09:29 01/01/25 01:57 400 MG Guaifenesin (RobiTUSSin SUGAR-FREE 100 MG/ 5 ML UDCUP) 600 mg Q4H4 PRN PO SHORTNESS OF BREATH/WHEEZING 12/29/24 09:30 12/29/24 09:35 DC Heparin Sodium (Porcine) (HEParin 5,000 UNIT VIAL) 5,000 unit Q12H SQ 12/29/24 08:30 01/28/25 08:29 01/01/25 08:40 5,000 UNIT Hydralazine HCl (APRESOLine 20MG INJ) 10 mg Q2H PRN IV SBP GREATER THAN 160 12/29/24 03:30 01/28/25 03:29 Insulin Human Regular (humuLIN R 100 UNIT/ML 3ML) INSULIN SLIDING SCAL... ACHS SQ 12/29/24 07:30 01/28/25 07:29 Ipratropium [place] (AtrovENT UD) 0.5 mg [id number] IH 12/29/24 10:00 12/30/24 18:56 DC 12/30/24 18:25 0.5 MG Ipratropium [place] (AtrovENT UD) 0.5 mg [id number] PRN IH SHORTNESS OF BREATH/WHEEZING 12/29/24 03:30 12/30/24 09:00 DC Ipratropium [place] (AtrovENT UD) 0.5 mg Q6H IH 01/01/25 10:00 01/01/25 09:53 DC Ipratropium [place] (AtrovENT UD) 0.5 mg Q6H IH 01/01/25 12:00 01/31/25 11:59 Ketorolac Tromethamine (toRADol) 15 mg ONCE STAT IV 12/30/24 18:53 12/30/24 18:59 DC 12/30/24 19:13 15 MG Lactulose (Constulose 20gm/ 30ml Udcup) 20 gm Q6H PRN PO CONSTIPATION 12/29/24 03:30 01/28/25 03:29 Levofloxacin/ Dextrose 150 ml @ 100 mls/hr Q24H IV 12/29/24 10:00 01/08/25 09:59 01/01/25 10:06 100 MLS/HR Levofloxacin/ Dextrose (LEvaquIN 750 MG/ D5W 150 ML) 750 mg Q24H IV 12/29/24 09:30 12/29/24 09:12 DC Lidocaine (Lidocaine Patch 4%) 1 each DAILY TP 12/29/24 09:30 01/28/25 09:29 01/01/25 08:10 1 EACH Losartan Potassium (CozAAR 50 mg TAB) 50 mg DAILY PO 12/30/24 10:30 01/29/25 10:29 01/01/25 08:10 50 MG Losartan Potassium (CozAAR 50 mg TAB) 50 mg DAILY PO 12/31/24 09:00 12/30/24 10:09 DC Magnesium Sulfate 50 ml @ 0 mls/hr PROTOCOL PRN IV MAGNESIUM PROTOCOL 12/29/24 09:30 01/28/25 09:29 Methylprednisolone Sodium Succinate (Solu-medROL 40MG) 60 mg Q6H IVP 12/30/24 11:00 01/28/25 14:59 01/01/25 05:53 60 MG Methylprednisolone Sodium Succinate (Solu-medROL 125MG) 60 mg Q6H IVP 12/29/24 15:00 12/30/24 08:17 DC 12/30/24 04:40 60 MG Nitroglycerin (Nitroglycerin 1gm Oint) 1 inch Q8H TD 12/29/24 09:00 01/28/25 08:59 01/01/25 08:11 1 INCH Ondansetron HCl (zoFRAN 4MG INJ) 4 mg Q6H PRN IVP NAUSEA/VOMITING 12/29/24 03:30 01/28/25 03:29 Pantoprazole Sodium (PROTonix 40MG INJ) 40 mg BID IVP 12/29/24 21:00 12/29/24 10:34 DC Pantoprazole Sodium (PROTonix 40MG INJ) 40 mg BID IVP 12/29/24 21:00 01/28/25 20:59 01/01/25 08:12 40 MG Pantoprazole Sodium (PROTonix 40MG INJ) 40 mg DAILY IVP 12/30/24 09:00 12/29/24 16:16 DC Potassium Chloride 100 ml @ 50 mls/hr AD PRN IV POTASSIUM PROTOCOL 12/29/24 09:30 01/28/25 09:29 Potassium Chloride (K-Dur/Klor-Con 20meq) 20 meq AD PRN PO POTASSIUM PROTOCOL 12/29/24 10:30 01/28/25 10:29 01/01/25 08:10 20 MEQ Potassium Chloride (KCl 10% Elixir 20meq/15ml) 20 meq AD PRN PO POTASSIUM PROTOCOL 12/29/24 10:30 01/28/25 10:29 Simethicone (Mylicon) 120 mg Q6H PRN PO GI GAS 12/30/24 21:00 01/29/25 20:59 12/30/24 21:06 120 MG Spironolactone (Aldactone 25mg) 25 mg BID PO 12/29/24 09:00 01/28/25 08:59 01/01/25 08:10 25 MG Temazepam (restORIL 15 MG CAP) 15 mg HS PRN PO INSOMNIA/SLEEP 12/29/24 03:30 01/28/25 03:29 Tramadol HCl (UltRAM) 50 mg Q8H5 PRN PO SEVERE PAIN (7-10) 01/01/25 10:00 01/06/25 09:59 01/01/25 10:06 50 MG DIAGNOSTICS / RADIOLOGY: [ ] ASSESSMENT: Acute CHF with exacerbation combined systolic and diastolic, EF 25-30%, stage III diastolic dysfunction POA NSTEMI, elevated troponins, POA Volume overload, POA, noncompliant with fluid restriction and diuretics CKD stage 3 Community-acquired pneumonia, ruled out POA Pulmonary vascular congestion, POA Cardiomegaly, POA Anemia chronic disease kidney disease, POA Uncontrolled hypertension Morbidly obese, BMI 58.3 History of tobacco use PLAN: -Monitor respiratory status closely. -Continue oxygen therapy as needed. Titrate oxygen prn to keep Spo2>/+=92%. -BiPAP as needed for shortness of breath. -Atrovent q.4 hours scheduled. -Aspirin 81 mg p.o. daily. -Atorvastatin 40 mg PO daily. -Lasix 60 mg IV TID. -spironolactone 25 mg b.i.d. -carvedilol 12.5 mg b.i.d. -Nitroglycerin paste t.i.d.. -cardiology consulted, appreciate recommendations -lidocaine patch as needed for to rib pain. -Strict I&O. -Fluid restriction 1,200 mls in 24 hours. -Daily weight. -Solu-Medrol 60 mg IV q.6 hours. -Antibiotic therapy: Levaquin 750 mg IV daily. Disposition: Pending improvement in clinical statusCardiology recommendations CATHY CHRISTENSEN MD Jan 01, 2025 11:03
[2025-01-01] MEDS: IpraTROPium 0.5 MG/2.5 ML INH IH SCH (11:32)
--- NOTE | 2025-01-01 14:21 | PN ---
[facility] PROGRESS NOTE Date Patient Seen: Jan 01, 2025 Time of Visit: 14:09 Supervising Physician: JS LUJAN Consulting Physician: [facility] Outpatient Specialists: [ ] Inpatient Consults: [ ] PROBLEM LIST: Recurrent chest pain on 12/30/24 HEART Score 5 Acute hypoxic respiratory failure, POA CHF in acute exacerbation, EF of 25-30%, stage III diastolic dysfunction, POA Non ischemic dilated cardiomyopathy Cardiac Asthma, POA NSTEMI, POA Transaminitis, likely congestive hepatopathy Acute kidney injury, POA Bilateral pleural effusion, POA Multifocal pneumonia, POA Electrolyte abnormality, POA Cardiomegaly, POA Hypertension, POA Morbid obesity, BMI of 58.3 Obesity hypoventilation syndrome ARABELLA, on CPAP at home History of occasional use of tobacco and alcohol INTERVAL HISTORY: Patient was seen and examined today by me , he was sitting up in recliner complaining of left-sided rib pain. The pain is pleuritic in nature and exacerbated with a deep breath or cough. It was improved with analgesics. He also has associated bruising to the left flank. He denies any falls or traumatic situations that could have caused this bruising. Otherwise he is on 2 L via nasal cannula, he continues on diuresis with Lasix and for his acute congestive heart failure with cardiomyopathy. No further wheezing as reported, shortness for breath has improved since admission. Chest x-ray reveals interval improvement on pulmonary edema. REVIEW OF SYSTEMS: 12 point ROS reviewed with patient. Pertinent positives mentioned above. Othe rwise negative. PHYSICAL EXAM: GENERAL: alert, weak, awake oriented x 3 HEENT: EOMI, Sclera non icteric, moist mucosa NECK: Supple, no JVD, trachea midline , short and wide LUNGS: Fair entry, no wheezing, decreased bibasilar sounds HEART: Regular rate and rhythm. Normal S1 and S2, without murmurs ABD: Large abdomen Bowel sounds present, nontender EXT: 1+ bilateral pitting edema NEURO: Alert and oriented to person, follows commands Vital Signs (last 8hr) Date Time Temp Pulse Resp B/P (MAP) Pulse Ox O2 Delivery O2 Flow Rate FiO2 01/01/25 12:41 97.9 74 20 136/87 98 Room Air 01/01/25 12:35 136/87 01/01/25 11:33 72 27 01/01/25 08:25 97 Room Air* 0 N/A Bi-PAP+ 3/5/25 07:35 65 20 N/A Room Air 21 01/01/25 07:27 98.8 77 20 108/56 96 Room Air LABS: Hematology Labs: Test 01/01/25 03:27 12/31/24 03:37 Range/Units White Blood Count 12.4 H 4.8-10.8 K/uL Red Blood Count 4.45 L 4.50-6.20 MIL/uL Hemoglobin 11.5 L 14.0-18.0 g/dL Hematocrit 36.1 L 42-54 % Mean Corpuscular Volume 81.1 79-99 fL Mean Corpuscular Hemoglobin 25.8 L 27.0-33.0 pg Mean Corpuscular Hemoglobin Concent 31.9 L 32.0-36.0 g/dL Red Cell Distribution Width 15.3 11.0-15.5 % Platelet Count 334 130-400 K/uL Mean Platelet Volume 12.2 H 7.5-10.5 fL Immature Granulocyte % (Auto) 0.4 0-1 % Neutrophils (%) (Auto) 83.2 H 40.0-77.0 % Lymphocytes (%) (Auto) 12.0 L 21.0-51.0 % Monocytes (%) (Auto) 4.3 3.0-13.0 % Eosinophils (%) (Auto) 0.0 0.0-8.0 % Basophils (%) (Auto) 0.1 0.0-5.0 % Neutrophils # (Auto) 10.3 H 1.8-7.7 K/uL Lymphocytes # (Auto) 1.5 1.0-4.8 K/uL Monocytes # (Auto) 0.5 0.1-1.0 K/uL Eosinophils # (Auto) 0.00 0.00-0.70 K/uL Basophils # (Auto) 0.01 0.00-0.20 K/uL Absolute Immature Granulocyte (auto 0.05 0-1 K/uL Nucleated Red Blood Cells 0.0 0.0-0.19 % Segmented Neutrophils % 78 H 40-70 % Lymphocytes % (Manual) 20 L 22-44 % Monocytes % (Manual) 2 2-9 % Differential Comment MANUAL DIFFERENTIAL White Cell Morphology Comment VACUOLATION 1+ Platelet Morphology Comment ADEQUATE Red Blood Cell Morphology See comments Chemistry Labs: Test 01/01/25 11:41 3/5/25 03:27 12/31/24 21:00 12/31/24 03:37 Range/Units Whole Blood Glucose 130 H 70-110 MG/DL Sodium Level 138 136-145 mmol/L Potassium Level 3.8 3.5-5.1 mmol/L Chloride Level 102 101-111 mmol/L Carbon Dioxide Level 31 21-32 mmol/L Blood Urea Nitrogen 42 H 7-18 mg/dL Creatinine 1.7 H 0.5-1.3 mg/dL Glomerular Filtration Rate Calc 51 >90 mL/min Random Glucose 124 H 70-105 mg/dL Total Calcium 8.3 L 8.5-10.1 mg/dL Phosphorus Level 4.8 2.5-4.9 mg/dL Magnesium Level 2.70 H 1.80-2.40 mg/dL Total Bilirubin 0.5 0.2-1.0 mg/dL Aspartate Amino Transf (AST/SGOT) 65 H 10-37 U/L Alanine Aminotransferase (ALT/SGPT) 185 H 12-78 U/L Alkaline Phosphatase 51 50-136 U/L B-Type Natriuretic Peptide 135 H 0-100 pg/mL Total Protein 7.0 6.0-8.3 g/dL Albumin 2.7 L 3.5-5.0 g/dL Total Creatine Kinase 392 H 21-232 U/L Troponin I High Sensitivity 37.2 4-75 ng/L Lactic Acid Level 1.6 0.8-2.5 mmol/L DIAGNOSTICS / RADIOLOGY RESULTS: [ ] PLAN NEURO: Minimize central acting medications as possible. Maintain fall precautions, adequate lighting during the day PULMONARY: Supplemental 02 as needed. Maintain aspiration precautions at all times Decrease solumedrol to 40 iv q12 h Okay for Mucomyst and CPT ,unable to expectorate his sputum start atrovent and pulmicort Rib series to further evaluate . Outpatient appt with biofuels manager for ARABELLA testing and PFTs CARDIOVASCULAR: Follow hemodynamics. Vital signs per facility protocol GI & NUTRITION: Continue with nutritional support. Continue stool softeners and laxatives as needed. KIDNEYS & ELECTROLYTES: Strict monitoring of intake, output and overall fluid balance. Avoid nephrotoxic medications to the extent possible. Medications to be dosed according to renal function. Monitor electrolytes and replace as needed ENDOCRINE: Maintain blood glucose between 100-180 at all times. Hypoglycemia protocol in place INFECTIOUS DISEASE: Trend temperature, WBC and procalcitonin level Follow cultures, deescalate antibiotics as soon as possible. Panculture if new onset fever ONCOLOGY/HEMATOLOGY/COAGULATION: Monitor for s/s of bleeding Monitor hemoglobin, coagulation studies as needed SKIN: Pressure ulcer prevention per facility protocol Specialty mattress ORTHO/REHAB: Continue PT/OT Prophylaxis: Continue GI and DVT prophylaxis Code Status: Full Resuscitation Disposition: TBD Other: Total patient care time exceeds 35 minutes excluding all procedures. YOANA CHISHOLM Jan 01, 2025 14:20
--- NOTE | 2025-01-01 15:10 | HMCIMG ---
LEFT RIBS RADIOGRAPHS -6 VIEWS INDICATION: Left rib pain COMPARISON: None FINDINGS: No rib fracture identified. Visualized portions of the left lung are clear. No radiopaque foreign body noted. IMPRESSION: No rib fracture identified.
[2025-01-01] MEDS: furoSEMIDE 40 MG TABLET PO SCH (16:30)
--- NOTE | 2025-01-01 17:40 | PN ---
CARDIOLOGY PROGRESS REPORT LOCATION: He is in room 221. SUBJECTIVE: This 39-year-old man is admitted with shortness of breath and evidence of congestive heart failure. His echocardiogram was read as showing ejection fraction 25%-30%. Records were received from [place], [place]. MEDICATIONS: As of 11/2022 included furosemide 40 mg b.i.d., carvedilol 25 mg b.i.d., spironolactone 25 mg daily, losartan 100 mg daily, amlodipine 5 mg daily. An echocardiogram was performed on 11/29/2022 being read as showing ejection fraction 40%-45%. There was mild-moderate mitral regurgitation. There was no significant aortic insufficiency or aortic stenosis. Left heart catheterization was performed on 12/05/2022 showing all coronary arteries normal. The resting left ventricular end diastolic pressure was 25-30 mmHg. The ejection fraction was 40%. PHYSICAL EXAMINATION: GENERAL: Currently, the patient is resting comfortably in no acute distress. States that he feels better. VITAL SIGNS: Blood pressure 136/87, heart rate 74. LUNGS: The lungs today sound clear. CARDIAC: The cardiac rhythm has remained normal sinus-mild sinus bradycardia with occasional PVCs. LABORATORY DATA TODAY: Hemoglobin 11.5, hematocrit 36.1. Potassium 3.8, magnesium 2.7, BUN 42, creatinine 1.7. IMPRESSION: This patient has a nonischemic dilated cardiomyopathy with ejection fraction lower compared to 2022. PLAN: Medications will be optimized. The patient will transition from intravenous to p.o. furosemide. Obtaining a primary care physician and following up with a service engineer was discussed with the patient. Procuring his outpatient medications also discussed. It is expected that the patient can be discharged tomorrow. TID: [id number] RECEIPT: [id number]
[2025-01-01] MEDS: BUDESONIDE 0.5 MG/2 ML INH IH SCH (19:06)
--- NOTE | 2025-01-01 20:13 | HMCIMG ---
CT ABDOMEN WITHOUT CONTRAST. CT PELVIS WITHOUT CONTRAST. INDICATION: Left flank bruising TECHNIQUE: Routine transaxial imaging using 5 mm slice thickness through the abdomen and pelvis without the administration of IV contrast. Thin slice reconstructions are also provided. Coronal and sagittal reformatted images acquired for interpretation. CT was performed with one or more of the following dose reduction techniques: Automated exposure control, adjustment of the mA and/or kV according to patient size, or use of iterative reconstruction technique. COMPARISON: None FINDINGS: Examination is slightly limited secondary to patient body habitus. Gantry artifact noted. ON NONCONTRAST IMAGING: ABDOMEN: Heart size is normal. Trace pericardial effusion. Minimal lingular scarring. No abnormal renal calcifications, hydronephrosis, perinephric inflammation, or proximal hydroureter detected. The liver is normal in size and smooth in contour without biliary duct dilation. The spleen is normal in size and attenuation. The gallbladder appears normal. The pancreas appears normal without pancreatic duct dilation. The adrenal glands appear normal. No significant abdominal, retrocrural or retroperitoneal adenopathy noted. No evidence for intra-abdominal free air or organized fluid collection. No aortic aneurysmal dilation identified. Mild deep subcutaneous soft tissue swelling along the anterolateral left mid abdomen. PELVIS: No abnormal calcifications within the urinary bladder or distal ureters. No evidence for free air or organized pelvic fluid collection. No significant pelvic adenopathy detected. Visualized small and large bowel loops appear unremarkable. Terminal ileum appears unremarkable. The appendix appears normal. Visible osseous structures are intact. IMPRESSION: Limitations as reported. Mild deep subcutaneous soft tissue swelling along the anterolateral left mid abdomen without any evidence for hematoma or fracture. Trace pericardial effusion.
[2025-01-01] MEDS ORDERED: BUDESONIDE 0.5 MG/2 ML INH IH SCH (21:00)
[2025-01-01] MEDS ORDERED: furoSEMIDE 20MG VIAL IV SCH (21:00)
[2025-01-01] MEDS: acetylCYSTeine10% 4ML VIAL IH SCH (23:47)
[2025-01-02] VITALS (10 sets, daily range): BP systolic 88–112; BP diastolic 58–70; PULSE 56–102; RESP 18–22; TEMP 98–98.6; O2SAT 92–100
[2025-01-02] MEDS: Solu-medROL 40MG VIAL IVP SCH (00:08)
[2025-01-02 04:57] LABS: BASOPHILS # (AUTO) 0.01 K/uL (0.00-0.20); BASOPHILS % (AUTO) 0.1 % (0.0-5.0); HEMATOCRIT 40.9 % (42-54); IMMATURE GRANULOCYTE ABSOLUTE 0.09 K/uL (0-1); LYMPHOCYTES # (AUTO) 1.8 K/uL (1.0-4.8); LYMPHOCYTES % (AUTO) 13.4 % (21.0-51.0); MEAN CORPUSCULAR HEMOGLOBIN 25.9 pg (27.0-33.0); MEAN CORPUSCULAR HGB CONC 31.5 g/dL (32.0-36.0); MEAN CORPUSCULAR VOLUME 82.1 fL (79-99); MONOCYTES # (AUTO) 0.9 K/uL (0.1-1.0); MONOCYTES % (AUTO) 6.8 % (3.0-13.0); NEUTROPHILS # (AUTO) 10.7 K/uL (1.8-7.7); PLATELET COUNT (AUTO) 347 K/uL (130-400); RED BLOOD CELL COUNT(AUTO) 4.98 MIL/uL (4.50-6.20); RED CELL DISTRIBUTION WIDTH 15.5 % (11.0-15.5); WHITE BLOOD COUNT (AUTO) 13.5 K/uL (4.8-10.8)
[2025-01-02 05:26] LABS: ALBUMIN 2.8 g/dL (3.5-5.0); BILIRUBIN,TOTAL 0.5 mg/dL (0.2-1.0); CREATININE 1.7 mg/dL (0.5-1.3); POTASSIUM 4.1 mmol/L (3.5-5.1); TOTAL PROTEIN, SERUM 7.2 g/dL (6.0-8.3)
[2025-01-02] MEDS: SPIRONOLACTONE 25 MG TAB PO SCH (09:14)
[2025-01-02 09:18] LABS: ABG BASE EXCESS 0.8 mmol/L (-2.0-3.0); ABG HCO3 25.5 mmol/L (21.0-28.0); ABG OXYGEN SATURATION 96.3 % (94.0-98.0); ABG PCO2 41 mmHg (35-48); ABG PH 7.412 (7.350-7.450); DEVICE COMMENT RR SAN JUANA; VENT MODE, BG RA (ROOM AIR)
[2025-01-02] MEDS ORDERED: FURO40TA5 PO (13:53)
[2025-01-02] MEDS ORDERED: CARV12.580 PO (13:53)
[2025-01-02] MEDS ORDERED: SPIR25TA6 PO (13:53)
[2025-01-02] MEDS ORDERED: ALBUHFA IH (13:53)
[2025-01-02] MEDS ORDERED: ASPI-1005 PO (13:53)
[2025-01-02] MEDS ORDERED: PRED20TA3 PO (13:53)
[2025-01-02] MEDS ORDERED: LOSA-418 PO (13:53)
--- NOTE | 2025-01-02 14:27 | PN ---
[facility] PROGRESS NOTE Date Patient Seen: Jan 02, 2025 Time of Visit: 14:20 Supervising Physician: ALFARO MD Consulting Physician: Luisito Mcleod Outpatient Specialists: [ ] Inpatient Consults: [ ] PROBLEM LIST: Recurrent chest pain on 12/30/24 HEART Score 5 Acute hypoxic respiratory failure, POA ,RESOLVED CHF in acute exacerbation, EF of 25-30%, stage III diastolic dysfunction, POA, inmproved Non ischemic dilated cardiomyopathy Cardiac Asthma, POA NSTEMI, POA Transaminitis, likely congestive hepatopathy Acute kidney injury, POA Bilateral pleural effusion, POA Multifocal pneumonia, POA Electrolyte abnormality, POA Cardiomegaly, POA Hypertension, POA Morbid obesity, BMI of 58.3 Obesity hypoventilation syndrome ARABELLA, on CPAP at home History of occasional use of tobacco and alcohol INTERVAL HISTORY: Patient was seen and examined today by me , he was sitting up in recliner feeling much improved HE is no longer on oxygen . Pain has resolved . CT scan of abdomen is unremarkable and XR reveals no rib fx . Blood Gas today reveals normal PH of 7.4 , Pc02 at 41 and P02 at 83 on room air. Sputum culture Gram + cocci Bilateral infiltrates improving . REVIEW OF SYSTEMS: 12 point ROS reviewed with patient. Pertinent positives mentioned above. Otherwise negative. PHYSICAL EXAM: GENERAL: alert, weak, awake oriented x 3 HEENT: EOMI, Sclera non icteric, moist mucosa NECK: Supple, no JVD, trachea midline , short and wide LUNGS: Fair entry, no wheezing, decreased bibasilar sounds HEART: Regular rate and rhythm. Normal S1 and S2, without murmurs ABD: Large abdomen Bowel sounds present, nontender EXT: 1+ bilateral pitting edema NEURO: Alert and oriented to person, follows commands Vital Signs (last 8hr) Date Time Temp Pulse Resp B/P (MAP) Pulse Ox O2 Delivery O2 Flow Rate FiO2 01/02/25 11:31 98.6 71 20 104/66 98 Room Air 01/02/25 11:29 84 22 01/02/25 09:15 112/70 01/02/25 09:08 88 18 21 102 18 21 01/02/25 07:26 98.2 78 20 112/70 100 Room Air 01/02/25 07:15 98 Room Air* 0 N/A Bi-PAP+ 01/02/25 06:51 79 21 N/A Room Air 21 01/02/25 06:42 79 22 LABS: Hematology Labs: Test 01/02/25 04:26 Range/Units White Blood Count 13.5 H 4.8-10.8 K/uL Red Blood Count 4.98 4.50-6.20 MIL/uL Hemoglobin 12.9 L 14.0-18.0 g/dL Hematocrit 40.9 L 42-54 % Mean Corpuscular Volume 82.1 79-99 fL Mean Corpuscular Hemoglobin 25.9 L 27.0-33.0 pg Mean Corpuscular Hemoglobin Concent 31.5 L 32.0-36.0 g/dL Red Cell Distribution Width 15.5 11.0-15.5 % Platelet Count 347 130-400 K/uL Mean Platelet Volume 12.1 H 7.5-10.5 fL Immature Granulocyte % (Auto) 0.7 0-1 % Neutrophils (%) (Auto) 79.0 H 40.0-77.0 % Lymphocytes (%) (Auto) 13.4 L 21.0-51.0 % Monocytes (%) (Auto) 6.8 3.0-13.0 % Eosinophils (%) (Auto) 0.0 0.0-8.0 % Basophils (%) (Auto) 0.1 0.0-5.0 % Neutrophils # (Auto) 10.7 H 1.8-7.7 K/uL Lymphocytes # (Auto) 1.8 1.0-4.8 K/uL Monocytes # (Auto) 0.9 0.1-1.0 K/uL Eosinophils # (Auto) 0.00 0.00-0.70 K/uL Basophils # (Auto) 0.01 0.00-0.20 K/uL Absolute Immature Granulocyte (auto 0.09 0-1 K/uL Nucleated Red Blood Cells 0.0 0.0-0.19 % Chemistry Labs: Test 01/02/25 10:57 01/02/25 04:26 01/01/25 03:27 12/31/24 21:00 Range/Units Whole Blood Glucose 93 70-110 MG/DL Sodium Level 142 136-145 mmol/L Potassium Level 4.1 3.5-5.1 mmol/L Chloride Level 104 101-111 mmol/L Carbon Dioxide Level 32 21-32 mmol/L Blood Urea Nitrogen 40 H 7-18 mg/dL Creatinine 1.7 H 0.5-1.3 mg/dL Glomerular Filtration Rate Calc 51 >90 mL/min Random Glucose 111 H 70-105 mg/dL Total Calcium 8.6 8.5-10.1 mg/dL Total Bilirubin 0.5 0.2-1.0 mg/dL Aspartate Amino Transf (AST/SGOT) 46 H 10-37 U/L Alanine Aminotransferase (ALT/SGPT) 169 H 12-78 U/L Alkaline Phosphatase 50 50-136 U/L Total Protein 7.2 6.0-8.3 g/dL Albumin 2.8 L 3.5-5.0 g/dL Phosphorus Level 4.8 2.5-4.9 mg/dL Magnesium Level 2.70 H 1.80-2.40 mg/dL B-Type Natriuretic Peptide 135 H 0-100 pg/mL Total Creatine Kinase 392 H 21-232 U/L Troponin I High Sensitivity 37.2 4-75 ng/L DIAGNOSTICS / RADIOLOGY RESULTS: [ ] PLAN NEURO: Minimize central acting medications as possible. Maintain fall precautions, adequate lighting during the day PULMONARY: Supplemental 02 as needed. Maintain aspiration precautions at all times okay to stop Solumedrol , medrol taper okay upon dc Mucomyst and CPT ,unable to expectorate his sputum atrovent and pulmicort Outpatient appt with branch credit counselor for ARABELLA testing and PFTs Total of 7 day treatment with Levaquin upon DC . VQ scan ordered on admission is pending , and was ordreed by Admitting team - will defer this test to them . / /at this time his Wells score for PE was 1.5 - low risk upon admission however given elevated d dimer it was ordered . CARDIOVASCULAR: Follow hemodynamics. Vital signs per facility protocol GI & NUTRITION: Continue with nutritional support. Continue stool softeners and laxatives as needed. KIDNEYS & ELECTROLYTES: Strict monitoring of intake, output and overall fluid balance. Avoid nephrotoxic medications to the extent possible. Medications to be dosed according to renal function. Monitor electrolytes and replace as needed ENDOCRINE: Maintain blood glucose between 100-180 at all times. Hypoglycemia protocol in place INFECTIOUS DISEASE: Trend temperature, WBC and procalcitonin level Follow cultures, deescalate antibiotics as soon as possible. Panculture if new onset fever ONCOLOGY/HEMATOLOGY/COAGULATION: Monitor for s/s of bleeding Monitor hemoglobin, coagulation studies as needed SKIN: Pressure ulcer prevention per facility protocol Specialty mattress ORTHO/REHAB: Continue PT/OT Prophylaxis: Continue GI and DVT prophylaxis Code Status: Full Resuscitation Disposition: TBD Other: Total patient care time exceeds 35 minutes excluding all procedures. YOANA CHISHOLM Jan 02, 2025 14:27
--- NOTE | 2025-01-02 15:00 | NUR ---
PT WAS DISCHARGED AND TAKEN TO PRIVATE VEHICLE BY W/C IN NO APPARENT DISTRESS OR ANY COMPLAINTS OFFERED. CALLED [facility] PER PT'S REQUEST TO ORDER DISCHARGE MEDS.
--- NOTE | 2025-01-02 15:07 | DS ---
Discharge Summary Hospital Course Summary: 39-year-old male with a past medical history of congestive heart failure and hypertension who presented to [facility] ED for evaluation of left-sided chest pain. He was seen in our emergency department on December 28, 2024 for a cough and was discharged home with the diagnosis of upper respiratory infection. The patient was sent home with multiple prescriptions. He said he was able to get all his prescriptions accept for promethazine. He stated a few hours prior to arrival he had an episode of coughing that felt like an explosion to his left rib area patient is now unable to cough due to pain which prompted the ED visit. He also reported shortness of breath on exertion and today even at rest. The patient was negative for influenza and COVID on 12/28/2024. CT Chest without contrast showed bilateral pulmonary infiltrates. Lower extremities had significant bilateral pitting edema consistent with volume overload. Patient was admitted and started on diuretic therapy. Cardiology was consulted and his diuretics were adjusted. The following day at bedside he had a notable wheeze. He has a hx of smoking, he was started on nebulizers and a short course of systemic lisandra roids. Echocardiogram was ordered showing decreased EF of 25-30% with stage III diastolic dysfunction. Patient also complained of left flank pain with corresponding bruising however denied any recent history of trauma. A CT of abdomen/pelvis showed some soft tissue stranding corresponding to the same area but no evidence of intraabdominal pathology. By hospital day 4 the patient was back on room air, felt significantly improved and was cleared for discharge by cardiology. He will be discharged home to follow up with cardiology . Lead Painter(s): Cardiology Pulmonology Procedure(s): LEFT RIBS RADIOGRAPHS -6 VIEWS INDICATION: Left rib pain COMPARISON: None FINDINGS: No rib fracture identified. Visualized portions of the left lung are clear. No radiopaque foreign body noted. IMPRESSION: No rib fracture identified. CT ABDOMEN WITHOUT CONTRAST. CT PELVIS WITHOUT CONTRAST. INDICATION: Left flank bruising TECHNIQUE: Routine transaxial imaging using 5 mm slice thickness through the abdomen and pelvis without the administration of IV contrast. Thin slice reconstructions are also provided. Coronal and sagittal reformatted images acquired for interpretation. CT was performed with one or more of the following dose reduction techniques: Automated exposure control, adjustment of the mA and/or kV according to patient size, or use of iterative reconstruction technique. COMPARISON: None FINDINGS: Examination is slightly limited secondary to patient body habitus. Gantry artifact noted. ON NONCONTRAST IMAGING: ABDOMEN: Heart size is normal. Trace pericardial effusion. Minimal lingular scarring. No abnormal renal calcifications, hydronephrosis, perinephric inflammation, or proximal hydroureter detected. The liver is normal in size and smooth in contour without biliary duct dilation. The spleen is normal in size and attenuation. The gallbladder appears normal. The pancreas appears normal without pancreatic duct dilation. The adrenal glands appear normal. No significant abdominal, retrocrural or retroperitoneal adenopathy noted. No evidence for intra-abdominal free air or organized fluid collection. No aortic aneurysmal dilation identified. Mild deep subcutaneous soft tissue swelling along the anterolateral left mid abdomen. PELVIS: No abnormal calcifications within the urinary bladder or distal ureters. No evidence for free air or organized pelvic fluid collection. No significant pelvic adenopathy detected. Visualized small and large bowel loops appear unremarkable. Terminal ileum appears unremarkable. The appendix appears normal. Visible osseous structures are intact. IMPRESSION: Limitations as reported. Mild deep subcutaneous soft tissue swelling along the anterolateral left mid abdomen without any evidence for hematoma or fracture. Trace pericardial effusion. PORTABLE CHEST RADIOGRAPH INDICATION: PAIN UPON BREATHING. COMPARISON: 12/29/2024 FINDINGS: quality assurance monitor final leads overlie the field of view. Image is somewhat underexposed, but the radiologic examination is still believed to be of reasonable diagnostic quality. Heart remains enlarged. The pulmonary vascularity and malinda appear normal. Bibasilar lung opacities without consolidation. No significant pleural effusion noted. No pneumothorax detected. IMPRESSION: Bibasilar pneumonia. Follow-up chest radiograph is advised in order to ensure resolution. Cardiomegaly without pulmonary vascular congestion. US VENOUS DOPPLER BILATERAL HISTORY: Edema COMPARISON: None TECHNIQUE: Bilateral lower extremity venous Doppler ultrasound study was performed. FINDINGS: The common femoral, femoral, popliteal, and posterior tibial veins are visualized. Normal flow with compressibilities are demonstrated. The greater saphenous veins are also seen and grossly patent. The study is limited due to patient's large body. IMPRESSION: 1. No evidence of deep venous thrombosis is seen. CT CHEST WITHOUT CONTRAST INDICATION: Left-sided chest pain TECHNIQUE: Routine axial images using 5 mm slice thickness were acquired from the lung apices to the bases without the administration of IV contrast.Coronal and sagittal reformatted images acquired for interpretation. CT was performed with one or more of the following dose reduction techniques: Automated exposure control, adjustment of the mA and/or kV according to patient size, or use of iterative reconstruction technique. COMPARISON: None FINDINGS: Extensive gantry artifact due to large patient body habitus. The heart size is normal. No pericardial effusion noted. The visualized great vessels and thoracic aorta are within normal limits. The trachea and airways are patent. Inferior right upper lobe, right lower lobe, and left lower lobe "ground-glass"/nodular opacities. No axillary, hilar, or mediastinal lymphadenopathy. No pleural effusion or pneumothorax identified. Limited views of the upper abdomen appear normal. Visible osseous structures are intact. IMPRESSION: Limitations as reported. Bilateral lung pneumonia, without pneumothorax. Assessment/Plan: ASSESSMENT: Acute CHF with exacerbation combined systolic and diastolic, EF 25-30%, stage III diastolic dysfunction POA NSTEMI, elevated troponins, POA Volume overload, POA, noncompliant with fluid restriction and diuretics CKD stage 3 Community-acquired pneumonia, ruled out POA Left chest wall contusion Elevated LFT, improving Pulmonary vascular congestion, improving POA Cardiomegaly, POA Anemia chronic disease kidney disease, POA Uncontrolled hypertension Morbidly obese, BMI 58.3 History of tobacco use Discharge Instructions: Follow up with PCP in 3-7 days Follow up with cardiology in 1-2 weeks Home Medications: Active Scripts Losartan Potassium (Cozaar) 50 Mg Tablet, 50 MG PO DAILY, #30 TAB 0 Refills Prov:CATHY CHRISTENSEN MD 01/02/25 Carvedilol (Coreg) 12.5 Mg Tablet, 12.5 MG PO BID, #60 TAB 0 Refills Prov:CATHY CHRISTENSEN MD 01/02/25 Aspirin (ASPIRIN 81MG CHEW TAB) 81 Mg Tab.chew, 81 MG PO DAILY, #30 TAB.CHEW 0 Refills Prov:CATHY CHRISTENSEN MD 01/02/25 Prednisone (Prednisone) 20 Mg Tablet, 1 TAB PO BID for 5 Days, #10 TAB 0 Refills Prov:CATHY CHRISTENSEN MD 01/02/25 Spironolactone (Spironolactone) 25 Mg Tablet, 1 TAB PO BID for 30 Days, #30 TAB 0 Refills Prov:CATHY CHRISTENSEN MD 01/02/25 Furosemide (Furosemide) 40 Mg Tablet, 1 TAB PO BID for 30 Days, #60 TAB 0 Refills Prov:CATHY CHRISTENSEN MD 01/02/25 Albuterol Sulfate (Ventolin Hfa/Proventil Hfa/Proair Hfa) 90 Mcg Puff, 2 PUFF IH Q4HPRN PRN for wheezing for 30 Days, #18 GM 0 Refills Prov:CATHY CHRISTENSEN MD 01/02/25 Reported Medications Promethazine HCl/Codeine (Promethazine-Codeine Syrup) 6.25 Mg-10 Mg/5 Ml Syrup, 5 ML PO Q4HPRN PRN for cough, #120 ML 0 Refills 12/29/24 Discontinued Reported Medications Azithromycin (Zithromax) 250 Mg Tablet, 1 TAB PO AD for 5 Days, #6 TAB 0 Refills 2 the first day followed by 1 for days 2-5 12/29/24 Discontinued Scripts Promethazine HCl/Codeine (Promethazine-Codeine Syrup) 6.25 Mg-10 Mg/5 Ml Syrup, 5 ML PO Q4HPRN PRN for cough, #120 ML 0 Refills Prov:RAJI MIRANDA DO 12/28/24 Prednisone (Prednisone) 20 Mg Tablet, 1 TAB PO BID for 5 Days, #10 TAB 0 Refills Prov:RAJI MIRANDA DO 12/28/24 Promethazine HCl/Codeine (Promethazine-Codeine Syrup) 6.25 Mg-10 Mg/5 Ml Syrup, 5 ML PO Q4HPRN PRN for cough, #120 ML 0 Refills Prov:RAJI MIRANDA DO 12/28/24 Azithromycin (Azithromycin) 250 Mg Tablet, 1 TAB PO AD for 5 Days, #6 TAB 0 Refills 2 the first day followed by 1 for days 2-5 Prov:RAJI MIRANDA DO 12/28/24 New Medications: Aspirin (Aspirin 81MG Chew Tab) 81 Mg Tab.chew 81 MG PO DAILY, #30 TAB.CHEW 0 Refills Carvedilol (Coreg) 12.5 Mg Tablet 12.5 MG PO BID, #60 TAB 0 Refills Losartan Potassium (Cozaar) 50 Mg Tablet 50 MG PO DAILY, #30 TAB 0 Refills Continued Medications: Albuterol Sulfate (Ventolin Hfa/Proventil Hfa/Proair Hfa) 90 Mcg Puff 2 PUFF IH Q4HPRN PRN for wheezing for 30 Days, #18 GM 0 Refills (This prescription has been renewed) Furosemide (Furosemide) 40 Mg Tablet 1 TAB PO BID for 30 Days, #60 TAB 0 Refills (This prescription has been renewed) Prednisone (Prednisone) 20 Mg Tablet 1 TAB PO BID for 5 Days, #10 TAB 0 Refills (This prescription has been renewed) Promethazine HCl/Codeine (Promethazine-Codeine Syrup) 6.25 Mg-10 Mg/5 Ml Syrup 5 ML PO Q4HPRN PRN for cough, #120 ML 0 Refills Spironolactone (Spironolactone) 25 Mg Tablet 1 TAB PO BID for 30 Days, #30 TAB 0 Refills (This prescription has been renewed) Discontinued Medications: Azithromycin (Azithromycin) 250 Mg Tablet 1 TAB PO AD for 5 Days, #6 TAB 0 Refills 2 the first day followed by 1 for days 2-5 Azithromycin (Zithromax) 250 Mg Tablet 1 TAB PO AD for 5 Days, #6 TAB 0 Refills 2 the first day followed by 1 for days 2-5 Prednisone (Prednisone) 20 Mg Tablet 1 TAB PO BID for 5 Days, #10 TAB 0 Refills Promethazine HCl/Codeine (Promethazine-Codeine Syrup) 6.25 Mg-10 Mg/5 Ml Syrup 5 ML PO Q4HPRN PRN for cough, #120 ML 0 Refills Promethazine HCl/Codeine (Promethazine-Codeine Syrup) 6.25 Mg-10 Mg/5 Ml Syrup 5 ML PO Q4HPRN PRN for cough, #120 ML 0 Refills Time spent arranging discharge: 31-60 minutes CATHY CHRISTENSEN MD Jan 02, 2025 15:07
--- NOTE | 2025-01-02 16:33 | HMCIMG ---
CHEST 1VW HISTORY: Congestion COMPARISON: 12/30/2024 FINDINGS: A frontal projection of the chest was obtained. There are bilateral pulmonary infiltrates suggestive of pulmonary vascular congestion with possible superimposed pneumonitis. The heart is borderline enlarged. Degenerative changes are seen. No evidence of aortic calcification is seen. IMPRESSION: 1. Bilateral pulmonary infiltrates are seen suggestive of pulmonary vascular congestion with possible superimposed pneumonitis.
== END 2025-01-02 15:00 | disposition home or self-care (01) | DRG 280 ==
LOC: EDH → EDHIP 00:01 → 2CH 18:39 → 2DH 12-31 15:00
PROVIDERS: ADMIT Internal Medicine; ATTEND Internal Medicine
DX: I13.0 Hypertensive heart and chronic kidney disease with heart failure and stage 1 through stage 4 chronic kidney disease, or unspecified chronic kidney disease (principal); I50.43 Acute on chronic combined systolic (congestive) and diastolic (congestive) heart failure; I21.4 Non-ST elevation (NSTEMI) myocardial infarction; J18.9 Pneumonia, unspecified organism; J96.01 Acute respiratory failure with hypoxia; E66.2 Morbid (severe) obesity with alveolar hypoventilation; N17.9 Acute kidney failure, unspecified; Z68.43 Body mass index [BMI] 50.0-59.9, adult; I50.1 Left ventricular failure, unspecified; I42.0 Dilated cardiomyopathy; Z20.822 Contact with and (suspected) exposure to COVID-19; D63.1 Anemia in chronic kidney disease; I34.0 Nonrheumatic mitral (valve) insufficiency; I49.3 Ventricular premature depolarization; N18.30 Chronic kidney disease, stage 3 unspecified; S20.212A Contusion of left front wall of thorax, initial encounter; Z91.119 Patient's noncompliance with dietary regimen due to unspecified reason; Z79.82 Long term (current) use of aspirin; Z79.899 Other long term (current) drug therapy; Z87.891 Personal history of nicotine dependence; Z88.0 Allergy status to penicillin
CPT/HCPCS: 36415; 36600; 71045; 71100; 71250; 74176; 80048; 80053; 80305; 82435; 82550; 82803; 82947; 82948; 83605; 83735; 83880; 84100; 84132; 84295; 84484; 85018; 85025; 85027; 85378; 85610; 85730; 86701; 87071; 87205; 87390; 87426; 87804; 93005; 93306; 93356; 93970; 94640; 94660; 94664; 94667; 94668; 94760; 96374; 96375; 96376; 99285; G0378; J1644; J1885; J1940; J1956; J2270; J2470; J2704; J2919; J7608